=== PATIENT | female | born 1990 | race Caucasian/White ===

== ENCOUNTER 2023-09-12 10:07 | Inpatient (IN) | payer BC, SELFPAY ==
--- NOTE | 2023-09-12 10:09 | W.ED.PSYCHS ---
Documented by User: NUVIA Padilla 09/13/23 12:09 HPI - Psych General: Chief Complaint: Psychiatric Symptoms Stated Complaint: 96 hr hold Time Seen by Provider: 09/12/23 10:08 Source: patient and EMS Mode of arrival: EMS Limitations: no limitations History of Present Illness: Patient is a 33-year-old female presents to ED today via EMS after her mother called an ambulance for evaluation of hallucinations and concerning behaviors. Patient's mother is her legal guardian and power of ip technology transactions attorney. Mother states she has been hallucinating at home. She states she has been up all night for several days doing bizarre things. Mother has found her in the kitchen holding a knife asking where the dog is so she could stab it. Patient was recently admitted to [facility] in [place] for a month-mother states symptoms initially started while she was in the hospital. She has a known brain tumor/oligodendroglioma. She was told her behaviors were not secondary to tumor and has diagnosed her with attention seeking behaviors and multiple personality disorder. Had multiple other medical speciality consults while in patient. Patient tells me she is fine and wants to go home. Affidavit from the mother states that she is having confusion, delirium, and hallucinations. She has been physically aggressive to her siblings. She has gotten naked and jumped on her siblings bed in the middle of the night, scaring them. She has tried to elope during the night. She has been awaking her siblings in the middle of the night telling them its time for school. She has tried to jump out of the car and reportedly is not concerned with oncoming traffic. Father states she picks up the vacuum and has imaginary conversations with that as if it were a telephone. She reportedly talks to imaginary characters. She puts aluminum foil in the microwave and turns it on. Onset (ago): day(s) History of same: Yes Relieving factors: none Exacerbating factors: none Associated symptoms: Reports auditory hallucinations (per guardian) and visual hallucinations (per guardian); Deny depression, homicidal ideation or suicidal ideation Treatments prior to arrival: placed on mental health hold (parents filing affidavits at [facility] currently ) Review of Systems Const: Denies: fever(s) or chills Card: Denies: chest pain, palpitations, lightheadedness or syncope Resp: Denies: dyspnea GI: Denies: abdominal pain, nausea, vomiting or diarrhea Skin/Breast: Denies: rash Neuro: Denies: headache(s) Psych: Reports: visual hallucinations (per guardian) and auditory hallucinations (per guardian); Denies: anxiety, depression, suicidal ideation or homicidal ideation Physical Exam Const: COMMON NORMALS: no acute distress, patient oriented x3, alert and well nourished GENERAL APPEARANCE: cooperative Resp: COMMON NORMALS: normal respiratory effort and clear to auscultation bilaterally AUSCULTATION: clear to auscultation bilaterally Cardio: COMMON NORMALS: regular rate and regular rhythm RATE: regular rate RHYTHM: regular rhythm Neuro: COMMON NORMALS: patient oriented x3 SENSORIUM/ORIENTATION: Yes alert Psych: COMMON NORMALS: mental status grossly normal, cooperative, normal affect, speech normal and activity/motor behavior normal APPEARANCE: Yes grossly normal ATTITUDE: Yes calm ACTIVITY/MOTOR BEHAVIOR: Yes appropriate eye contact and No psychomotor agitation SPEECH: Yes normal speech MOOD & AFFECT: Yes euthymic mood ATTENTION/CONCENTRATION: Yes attention grossly intact and Yes concentration grossly intact MEMORY/COGNITION: Yes memory grossly intact and Yes cognition grossly intact INSIGHT: Limited insight present (Psych) JUDGEMENT: Limited judgement present (Psych) Course ED course: According to patient's mother, most of patient's psychotic like symptoms began when she was hospitalized at [facility]. She was reportedly there for a month. We requested records from [facility] which took a few hours to obtain. Unfortunately the records they sent did not contain any hospitalist progress notes or discharge summaries or any type of consult by psychiatry. I spoken to Dr. Velázquez who does not feel comfortable excepting patient without these notes. Patient has been in no acute distress since she arrived here although is quite drowsy. She is on large amounts of opiate pain medications as well as several other sedating medications including benzodiazepines and antipsychotics. Her blood pressure has been soft and unchanged after a liter of fluids. Records from [facility] does show similar blood pressures while there. We re-contacted [facility] and they are attempting to fax additional records. Consultations: Consultation #1: Dr. Velázquez will accept patient to [facility] Vital Signs: Vital signs: Vital Signs Temperature 97.5 F L 09/13/23 02:49 Pulse Rate 100 09/13/23 08:29 Respiratory Rate 16 09/13/23 08:29 Blood Pressure 93/59 09/13/23 08:29 Pulse Oximetry 95 09/13/23 08:29 Oxygen Delivery Me thod Room Air 09/12/23 20:49 MDM - Psych Medical Decision Making Patient was worked up in normal psychiatric fashion and once cleared medically he began to call places to see if we get her accepted to the appropriate psychiatric facility anticipate patient will be transferred to the appropriate psychiatric facility. I spoke to Dr. Velázquez at 1200 on 09/12 who states he has reviewed case thoroughly and spoken extensively to the mother and feels comfortable now taking her at [facility]. Lab Data 09/12/23 11:15 09/12/23 11:15 Radiology Impressions Chest X-Ray 09/12/23 11:28 IMPRESSION: No acute findings. Laboratory Results WBC 10.99 10^3/uL (3.29-11.43) 09/12/23 11:15 RBC 3.30 10^6/uL (3.85-5.65) L 09/12/23 11:15 Hgb 10.70 g/dL (11.27-16.99) L 09/12/23 11:15 Hct 34.4 % (36-47) L 09/12/23 11:15 MCV 104.2 fl (85-98) H 09/12/23 11:15 MCH 32.4 pg (27-33) 09/12/23 11:15 MCHC 31.1 g/dL (30-55) 09/12/23 11:15 RDW 14.9 % (12.1-15.1) 09/12/23 11:15 Plt Count 103 10^3/cmm (157-399) L 09/12/23 11:15 MPV 9.7 fL (7.4-10.4) 09/12/23 11:15 Neut % (Auto) 68.2 % 09/12/23 11:15 Lymph % (Auto) 8.8 % 09/12/23 11:15 [place] % (Auto) 20.5 % 09/12/23 11:15 Eos % (Auto) 0.6 % 09/12/23 11:15 Baso % (Auto) 0.3 % 09/12/23 11:15 Neut # (Auto) 7.49 10^3/uL (1.8-7.7) 09/12/23 11:15 Lymph # (Auto) 1.0 10^3/uL (0.8-4.8) 09/12/23 11:15 [place] # (Auto) 2.3 10^3/uL (0.2-0.9) H 09/12/23 11:15 Eos # (Auto) 0.1 10^3/uL (0.0-0.8) 09/12/23 11:15 Baso # (Auto) 0.0 10^3/uL (0.0-0.1) 09/12/23 11:15 Nucleated RBC % (auto) 0 % 09/12/23 11:15 Nucleated RBCs # 0.0 /100WBC 09/12/23 11:15 Sodium 140 mmol/L (136-145) 09/12/23 11:15 Potassium 4.9 mmol/L (3.5-5.1) 09/12/23 11:15 Chloride 103 mmol/L (98-107) 09/12/23 11:15 Carbon Dioxide 29 mmol/L (22-29) 09/12/23 11:15 Anion Gap 12.9 (5-19) 09/12/23 11:15 BUN 9 mg/dL (6-20) 09/12/23 11:15 Creatinine 0.6 mg/dL (0.5-0.9) 09/12/23 11:15 GFR Calculation 115.9 mL/min (90-130) 09/12/23 11:15 Glucose 89 mg/dL (65-115) 09/12/23 11:15 Calculated Osmolality 288 mOsm/kg (285-295) 09/12/23 11:15 Calcium 8.9 mg/dL (8.5-10.5) 09/12/23 11:15 Total Bilirubin 0.3 mg/dL (0.15-1.2) 09/12/23 11:15 AST 13 U/L (0-32) 09/12/23 11:15 ALT 6 U/L (0-33) 09/12/23 11:15 Alkaline Phosphatase 101 U/L (35-105) 09/12/23 11:15 Total Protein 5.6 g/dL (6.6-8.7) L 09/12/23 11:15 Albumin 2.7 g/dL (3.5-5.2) L 09/12/23 11:15 Globulin 2.9 g/dL (1.3-4.6) 09/12/23 11:15 TSH 0.80 uIU/mL (0.27-4.20) 09/12/23 11:15 HCG, Qual Negative (Negative) 09/12/23 11:15 Urine Color Yellow (Yellow) 09/12/23 20:42 Urine Appearance Clear (CLEAR) 09/12/23 20:42 Urine pH 6 (5-7) 09/12/23 20:42 Ur Specific [place] 1.020 (1.005-1.030) 09/12/23 20:42 Urine Protein Neg (Negative) 09/12/23 20:42 Urine Glucose (UA) 2+ (Normal) H 09/12/23 20:42 Urine Ketones 1+ (Negative) H 09/12/23 20:42 Urine Blood Neg (Negative) 09/12/23 20:42 Urine Nitrate Negative (Negative) 09/12/23 20:42 Urine Bilirubin Neg (Negative) 09/12/23 20:42 Urine Urobilinogen Neg mg/dL (Negative) 09/12/23 20:42 Ur Leukocyte Esterase Negative (Negative) 09/12/23 20:42 Salicylates < 0.3 mg/dL (3-10) L 09/12/23 11:15 Urine Opiates Screen Positive ng/mL (Negative) H 09/12/23 11:12 Acetaminophen 9.9 ug/mL (10-30) L 09/12/23 11:15 Ur Barbiturates Screen Negative ng/mL (Negative) 09/12/23 11:12 Ur Phencyclidine Scrn Negative ng/mL (Negative) 09/12/23 11:12 Ur Amphetamines Screen Negative ng/mL (Negative) 09/12/23 11:12 U Benzodiazepines Scrn Positive ng/mL (Negative) H 09/12/23 11:12 Urine Cocaine Screen Negative ng/mL (Negative) 09/12/23 11:12 U Marijuana (THC) Screen Negative ng/mL (Negative) 09/12/23 11:12 Ethyl Alcohol < 10 mg/dL (0-10) 09/12/23 11:15 Influenza Type A Ag Negative (Negative) 09/13/23 00:15 Influenza Type B Ag Negative (Negative) 09/13/23 00:15 RSV Antigen Negative (Negative) 09/13/23 00:15 SARS-CoV-2 Ag (Rapid) Negative (Negative) 09/13/23 00:15 No radiology studies performed this visit Discharge Plan Discharge Patient Disposition: Admitted As Inpatient Clinical Impression: Acute psychosis Condition: Stable Prescriptions: No Action metoprolol tartrate 100 mg tablet 100 mg PO BID ondansetron HCl 4 mg tablet 4 mg PO BID PRN (Reason: Nausea And Vomiting) olanzapine 10 mg tablet 10 mg PO BEDTIME divalproex 500 mg tablet,delayed release (DR/EC) 500 mg PO BID olanzapine 7.5 mg tablet 7.5 mg PO QAM oxycodone 15 mg tablet 15 mg PO Q4H PRN (Reason: Pain) potassium chloride 20 mEq tablet,ER particles/crystals 40 meq PO DAILY pantoprazole 40 mg tablet,delayed release (DR/EC) 40 mg PO DAILY FeroSul 325 mg (65 mg iron) tablet 325 mg PO DAILY promethazine 25 mg tablet 25 mg PO Q6H PRN (Reason: Nausea And Vomiting) morphine 15 mg tablet extended release 15 mg PO BID Rx Instructions: MAX OF 7 DAYS furosemide 20 mg tablet 20 mg PO DAILY lorazepam 1 mg tablet 1 mg PO Q6H PRN (Reason: Anxiety) olanzapine 5 mg tablet,disintegrating 5 mg PO Q8H PRN (Reason: Agitation) Jardiance 10 mg tablet 10 mg PO QAM Narcan 4 mg/actuation spray,non-aerosol See Rx Instructions .ROUTE .COMPLEX Rx Instructions: intranasally ;CALL 911 ADMINISTER A SINGLE SPRAY OF NARCAN IN ONE NOSTRIL REPEAT EVERY 2 TO 3 MINUTES NEEDED IF NO OR MINIMAL RESPONSE Valtoco 5 mg/spray (0.1 mL) spray,non-aerosol See Rx Instructions .ROUTE .COMPLEX Rx Instructions: 5 mg intranasally ;ADMINISTER ONE SPARY IN LEFT NOSTRIL ONE TIME NEEDED Referrals: Cristal Gaming FNP [Primary Care Provider] - Sign Out Sign Out Data: Patient Sign Out occurred on 09/12/23 at 17:11. Patient's care was discussed, and care was transferred from NUVIA Padilla to NUVIA Correa. Coding Level of Care Code ED Demolition Crane Operator for Chg Fwd Documented by User: Antione Monaco DO 09/13/23 02:39 HPI - Psych General: Chief Complaint: Psychiatric Symptoms Stated Complaint: 96 hr hold Time Seen by Provider: 09/12/23 10:08 Course Vital Signs: Vital signs: Vital Signs Temperature 97.5 F L 09/13/23 02:49 Pulse Rate 100 09/13/23 08:29 Respiratory Rate 16 09/13/23 08:29 Blood Pressure 93/59 09/13/23 08:29 Pulse Oximetry 95 09/13/23 08:29 Oxygen Delivery Me thod Room Air 09/12/23 20:49 MDM - Psych Medical Decision Making Patient was worked up in normal psychiatric fashion and once cleared medically he began to call places to see if we get her accepted to the appropriate psychiatric facility anticipate patient will be transferred to the appropriate psychiatric facility. Lab Data 09/12/23 11:15 09/12/23 11:15 Radiology Impressions Chest X-Ray 09/12/23 11:28 IMPRESSION: No acute findings. Laboratory Results WBC 10.99 10^3/uL (3.29-11.43) 09/12/23 11:15 RBC 3.30 10^6/uL (3.85-5.65) L 09/12/23 11:15 Hgb 10.70 g/dL (11.27-16.99) L 09/12/23 11:15 Hct 34.4 % (36-47) L 09/12/23 11:15 MCV 104.2 fl (85-98) H 09/12/23 11:15 MCH 32.4 pg (27-33) 09/12/23 11:15 MCHC 31.1 g/dL (30-55) 09/12/23 11:15 RDW 14.9 % (12.1-15.1) 09/12/23 11:15 Plt Count 103 10^3/cmm (157-399) L 09/12/23 11:15 MPV 9.7 fL (7.4-10.4) 09/12/23 11:15 Neut % (Auto) 68.2 % 09/12/23 11:15 Lymph % (Auto) 8.8 % 09/12/23 11:15 [place] % (Auto) 20.5 % 09/12/23 11:15 Eos % (Auto) 0.6 % 09/12/23 11:15 Baso % (Auto) 0.3 % 09/12/23 11:15 Neut # (Auto) 7.49 10^3/uL (1.8-7.7) 09/12/23 11:15 Lymph # (Auto) 1.0 10^3/uL (0.8-4.8) 09/12/23 11:15 [place] # (Auto) 2.3 10^3/uL (0.2-0.9) H 09/12/23 11:15 Eos # (Auto) 0.1 10^3/uL (0.0-0.8) 09/12/23 11:15 Baso # (Auto) 0.0 10^3/uL (0.0-0.1) 09/12/23 11:15 Nucleated RBC % (auto) 0 % 09/12/23 11:15 Nucleated RBCs # 0.0 /100WBC 09/12/23 11:15 Sodium 140 mmol/L (136-145) 09/12/23 11:15 Potassium 4.9 mmol/L (3.5-5.1) 09/12/23 11:15 Chloride 103 mmol/L (98-107) 09/12/23 11:15 Carbon Dioxide 29 mmol/L (22-29) 09/12/23 11:15 Anion Gap 12.9 (5-19) 09/12/23 11:15 BUN 9 mg/dL (6-20) 09/12/23 11:15 Creatinine 0.6 mg/dL (0.5-0.9) 09/12/23 11:15 GFR Calculation 115.9 mL/min (90-130) 09/12/23 11:15 Glucose 89 mg/dL (65-115) 09/12/23 11:15 Calculated Osmolality 288 mOsm/kg (285-295) 09/12/23 11:15 Calcium 8.9 mg/dL (8.5-10.5) 09/12/23 11:15 Total Bilirubin 0.3 mg/dL (0.15-1.2) 09/12/23 11:15 AST 13 U/L (0-32) 09/12/23 11:15 ALT 6 U/L (0-33) 09/12/23 11:15 Alkaline Phosphatase 101 U/L (35-105) 09/12/23 11:15 Total Protein 5.6 g/dL (6.6-8.7) L 09/12/23 11:15 Albumin 2.7 g/dL (3.5-5.2) L 09/12/23 11:15 Globulin 2.9 g/dL (1.3-4.6) 09/12/23 11:15 TSH 0.80 uIU/mL (0.27-4.20) 09/12/23 11:15 HCG, Qual Negative (Negative) 09/12/23 11:15 Urine Color Yellow (Yellow) 09/12/23 20:42 Urine Appearance Clear (CLEAR) 09/12/23 20:42 Urine pH 6 (5-7) 09/12/23 20:42 Ur Specific [place] 1.020 (1.005-1.030) 09/12/23 20:42 Urine Protein Neg (Negative) 09/12/23 20:42 Urine Glucose (UA) 2+ (Normal) H 09/12/23 20:42 Urine Ketones 1+ (Negative) H 09/12/23 20:42 Urine Blood Neg (Negative) 09/12/23 20:42 Urine Nitrate Negative (Negative) 09/12/23 20:42 Urine Bilirubin Neg (Negative) 09/12/23 20:42 Urine Urobilinogen Neg mg/dL (Negative) 09/12/23 20:42 Ur Leukocyte Esterase Negative (Negative) 09/12/23 20:42 Salicylates < 0.3 mg/dL (3-10) L 09/12/23 11:15 Urine Opiates Screen Positive ng/mL (Negative) H 09/12/23 11:12 Acetaminophen 9.9 ug/mL (10-30) L 09/12/23 11:15 Ur Barbiturates Screen Negative ng/mL (Negative) 09/12/23 11:12 Ur Phencyclidine Scrn Negative ng/mL (Negative) 09/12/23 11:12 Ur Amphetamines Screen Negative ng/mL (Negative) 09/12/23 11:12 U Benzodiazepines Scrn Positive ng/mL (Negative) H 09/12/23 11:12 Urine Cocaine Screen Negative ng/mL (Negative) 09/12/23 11:12 U Marijuana (THC) Screen Negative ng/mL (Negative) 09/12/23 11:12 Ethyl Alcohol < 10 mg/dL (0-10) 09/12/23 11:15 Influenza Type A Ag Negative (Negative) 09/13/23 00:15 Influenza Type B Ag Negative (Negative) 09/13/23 00:15 RSV Antigen Negative (Negative) 09/13/23 00:15 SARS-CoV-2 Ag (Rapid) Negative (Negative) 09/13/23 00:15 Discharge Plan Discharge Patient Disposition: Admitted As Inpatient Clinical Impression: Acute psychosis Condition: Stable Prescriptions: No Action metoprolol tartrate 100 mg tablet 100 mg PO BID ondansetron HCl 4 mg tablet 4 mg PO BID PRN (Reason: Nausea And Vomiting) olanzapine 10 mg tablet 10 mg PO BEDTIME divalproex 500 mg tablet,delayed release (DR/EC) 500 mg PO BID olanzapine 7.5 mg tablet 7.5 mg PO QAM oxycodone 15 mg tablet 15 mg PO Q4H PRN (Reason: Pain) potassium chloride 20 mEq tablet,ER particles/crystals 40 meq PO DAILY pantoprazole 40 mg tablet,delayed release (DR/EC) 40 mg PO DAILY FeroSul 325 mg (65 mg iron) tablet 325 mg PO DAILY promethazine 25 mg tablet 25 mg PO Q6H PRN (Reason: Nausea And Vomiting) morphine 15 mg tablet extended release 15 mg PO BID Rx Instructions: MAX OF 7 DAYS furosemide 20 mg tablet 20 mg PO DAILY lorazepam 1 mg tablet 1 mg PO Q6H PRN (Reason: Anxiety) olanzapine 5 mg tablet,disintegrating 5 mg PO Q8H PRN (Reason: Agitation) Jardiance 10 mg tablet 10 mg PO QAM Narcan 4 mg/actuation spray,non-aerosol See Rx Instructions .ROUTE .COMPLEX Rx Instructions: intranasally ;CALL 911 ADMINISTER A SINGLE SPRAY OF NARCAN IN ONE NOSTRIL REPEAT EVERY 2 TO 3 MINUTES NEEDED IF NO OR MINIMAL RESPONSE Valtoco 5 mg/spray (0.1 mL) spray,non-aerosol See Rx Instructions .ROUTE .COMPLEX Rx Instructions: 5 mg intranasally ;ADMINISTER ONE SPARY IN LEFT NOSTRIL ONE TIME NEEDED Referrals: Cristal Gaming FNP [Primary Care Provider] - Sign Out Sign Out Data: Patient Sign Out occurred on 09/12/23 at 17:11. Patient's care was discussed, and care was transferred from NUVIA Padilla to NUVIA Correa. Coding Level of Care Code ED Demolition Crane Operator for Arvind Lindo
[2023-09-12 11:20] VITALS: BP 93/57; PULSE 90; O2SAT 91
[2023-09-12 11:23] LABS: Basophils % 0.3 %; Eosinophils # 0.1 10^3/uL (0.0-0.8); Eosinophils % 0.6 %; Hematocrit 34.4 % (36-47); Lymphocytes % 8.8 %; Mean Corpuscular HGB Conc 31.1 g/dL (30-55); Mean Corpuscular Hemoglobin 32.4 pg (27-33); Mean Corpuscular Volume 104.2 fl (85-98); Mean Platelet Volume 9.7 fL (7.4-10.4); Monocytes # 2.3 10^3/uL (0.2-0.9); Monocytes % 20.5 %; Neutrophils # 7.49 10^3/uL (1.8-7.7); Neutrophils % 68.2 %; Nucleated Red Blood Cells % 0 %; Platelet Count 103 10^3/cmm (157-399); Red Cell Distribution Width 14.9 % (12.1-15.1); White Blood Count 10.99 10^3/uL (3.29-11.43)
--- NOTE | 2023-09-12 11:28 | XRR_ITS ---
PROCEDURE INFORMATION: Exam: XR Chest Exam date and time: 09/12/2023 12:09 PM Age: 33 years old Clinical indication: Other: Low 02; Patient HX: Low o2. PT states she is having trouble breathing. AMS. TECHNIQUE: Imaging protocol: Radiologic exam of the chest. Views: 1 view. COMPARISON: No relevant prior studies available. FINDINGS: Tubes, catheters and devices: Infusion port in place with its tip at the atriocaval junction. Lungs: Unremarkable. No consolidation. Pleural spaces: Unremarkable. No pleural effusion. No pneumothorax. Heart/Mediastinum: Unremarkable. No cardiomegaly. Bones/joints: Unremarkable. XR/XR chest 1V portable [id number] IMPRESSION: No acute findings.
--- NOTE | 2023-09-12 11:29 | PC.PHAR ---
PT UNABLE TO TO VERIFY MEDICATIONS- UNABLE TO REACH ANY OF THE PTS CONTACTS- MEDICATIONS VERIFIED USING EXTERNAL MED LIST LAST FILLED
[2023-09-12 11:44] LABS: Amphetamines Screen Urine Negative (Negative); Barbiturates Screen Urine Negative (Negative); Benzodiazepines Screen Urine Positive (Negative); Cocaine Screen Urine Negative (Negative); Opiate Screen Urine Positive (Negative); PCP Screen Urine Negative (Negative); THC Screen Urine Negative (Negative)
[2023-09-12 11:50] LABS: Acetaminophen 9.9 ug/mL (10-30); Alanine Aminotransferase 6 U/L (0-33); Albumin Level 2.7 g/dL (3.5-5.2); Alkaline Phosphatase 101 U/L (35-105); Anion Gap 12.9 (5-19); Aspartate Amino Transferase 13 U/L (0-32); Blood Urea Nitrogen 9 mg/dL (6-20); Calcium 8.9 mg/dL (8.5-10.5); Carbon Dioxide 29 mmol/L (22-29); Chloride 103 mmol/L (98-107); Globulin 2.9 g/dL (1.3-4.6); Glomerular Filtration Rate 115.9 mL/min (90-130); Glucose 89 mg/dL (65-115); Osmolality Calculated 288 mOsm/kg (285-295); Potassium 4.9 mmol/L (3.5-5.1); Sodium 140 mmol/L (136-145); Total Bilirubin 0.3 mg/dL (0.15-1.2); Total Protein 5.6 g/dL (6.6-8.7)
[2023-09-12 11:51] LABS: Alcohol Level < 10 mg/dL (0-10); Salicylate < 0.3 mg/dL (3-10)
[2023-09-12 11:54] LABS: HCG, Serum Qual Negative (Negative)
[2023-09-12] MEDS: sodium chloride 0.9% 1,000 ML 999 ML IV (12:00)
[2023-09-12 13:57] VITALS: BP 97/64; PULSE 91; TEMP 36.5; O2SAT 91
--- NOTE | 2023-09-12 15:08 | PC.NURSE ---
96 hr rights reviewed with [facility] Dina @[id number]. All education reviewed. No verbalized concerns or questions for HS at this time. Patient copy left @bedside with patient. No further needs when asked.
[2023-09-12 17:00] VITALS: BP 91/50; PULSE 87; O2SAT 92
[2023-09-12 19:05] VITALS: BP 99/65; PULSE 93; RESP 16; O2SAT 94
[2023-09-12 20:48] LABS: Add Urine Microscopic? NO; Charge for UA Resulting for Rev
[2023-09-12 20:49] VITALS: BP 92/60; PULSE 92; RESP 18; O2SAT 94
[2023-09-12 20:56] LABS: Bilirubin Urine Neg (Negative); Blood Urine Neg (Negative); Glucose Urine UA 2+ (Normal); Ketones Urine 1+ (Negative); Leukocyte Esterase Urine Negative (Negative); Nitrate Urine Negative (Negative); Protein Urine Neg (Negative); Urine Appearance Clear (CLEAR); Urine Color Yellow (Yellow); Urobilinogen Urine Neg (Negative); pH Urine 6 (5-7)
--- NOTE | 2023-09-12 23:50 | ECG_ITS ---
[facility] Test Date: 2023-09-13 Pat Name: Piedad Ramirez Department: Room: Gender: Female Car Starter: : 1990 Requested By: Moncho Castelan Order Number: [id number] Sydnie MD: James Simpson M.D. Measurements Intervals [place] Rate: 103 P: 55 VA: 137 QRS: 32 QRSD: 97 T: 26 QT: 292 QTc: 384 Interpretive Statements SINUS TACHYCARDIA NONSPECIFIC ST & T-WAVE ABNORMALITY No previous ECG available for comparison Electronically Signed On 09-13-2023 11:46:10 CDT by James Simpson M.D. [id number]
[2023-09-13 00:12] VITALS: BP 107/65; PULSE 103; RESP 18; O2SAT 94
--- NOTE | 2023-09-13 00:17 | PC.NURSE ---
EKG performed with patient permission with female PSA present.
[2023-09-13 01:04] LABS: Influenza A by IFA Negative (Negative); Influenza B by IFA Negative (Negative); SARS Covid-2 Antigen Negative (Negative)
[2023-09-13 01:05] LABS: RSV Transfer Patient (ED) Negative (Negative)
[2023-09-13] MEDS: acetaminophen 500 mg Tablet 1000 MG PO (02:45)
[2023-09-13 02:49] VITALS: BP 99/62; PULSE 98; RESP 16; TEMP 36.4; O2SAT 91
--- NOTE | 2023-09-13 02:59 | PC.NURSE ---
pt requesting food at this time. pt given sandwich, crackers, pudding as requested.
--- NOTE | 2023-09-13 05:02 | PC.NURSE ---
called [facility] and d/t the distance to the facility they will have the doctor review when he arrives in the am
[2023-09-13 08:29] VITALS: BP 93/59; PULSE 100; RESP 16; O2SAT 95
[2023-09-13] MEDS: divalproex DR 500 mg Tablet PO (08:31)
[2023-09-13] MEDS: ferrous sulfate EC 325 mg Tablet PO (08:31)
[2023-09-13] MEDS: pantoprazole DR 40 mg Tablet PO (08:32)
[2023-09-13] MEDS: potassium chloride ER 20 mEq Tablet 40 MEQ PO (08:32)
[2023-09-13] MEDS: OLANZapine 5 mg TABLET 7.5 MG PO (08:33)
[2023-09-13 14:17] VITALS: BP 103/67; PULSE 89; RESP 20; TEMP 36.6; O2SAT 95
[2023-09-13 20:02] VITALS: BP 95/60; PULSE 94; RESP 15; TEMP 36.8; O2SAT 96
--- NOTE | 2023-09-14 05:43 | P.NPUHP_ITS ---
Providers/Chief Complaint 2 Admitting Physician: Willian Velázquez MD Primary Care Provider: SYLVIA Modi Chief Complaint: 96 hr hold HPI NPU History of Present Illness Piedad Ramirez is a 33 year old female who presented to the emergency department with the following report: Chief Complaint: Psychiatric Symptoms Stated Complaint: 96 hr hold Time Seen by Provider: 09/12/23 10:08 Source: patient and EMS Mode of arrival: EMS Limitations: no limitations History of Present Illness: Patient is a 33-year-old female presents to ED today via EMS after her mother called an ambulance for evaluation of hallucinations and concerning behaviors. Patient's mother is her legal guardian and power of trust and estates attorney. Mother states she has been hallucinating at home. She states she has been up all night for several days doing bizarre things. Mother has found her in the kitchen holding a knife asking where the dog is so she could stab it. Patient was recently admitted to [facility] in [place] for a month-mother states symptoms initially started while she was in the hospital. She has a known brain tumor/oligodendroglioma. She was told her behaviors were not secondary to tumor and has diagnosed her with attention seeking behaviors and multiple personality disorder. Had multiple other medical speciality consults while in patient. Patient tells me she is fine and wants to go home. Affidavit from the mother states that she is having confusion, delirium, and hallucinations. She has been physically aggressive to her siblings. She has gotten naked and jumped on her siblings bed in the middle of the night, scaring them. She has tried to elope during the night. She has been awaking her siblings in the middle of the night telling them its time for school. She has tried to jump out of the car and reportedly is not concerned with oncoming traffic. Father states she picks up the vacuum and has imaginary conversations with that as if it were a telephone. She reportedly talks to imaginary characters. She puts aluminum foil in the microwave and turns it on. Onset (ago): day(s) History of same: Yes Relieving factors: none Exacerbating factors: none Associated symptoms: Reports auditory hallucinations (per guardian) and visual hallucinations (per guardian); Deny depression, homicidal ideation or suicidal ideation Treatments prior to arrival: placed on mental health hold (parents filing affidavits at [facility] currently ). She was admitted to the neuropsychiatric unit for definitive treatment of those issues. She presents today as a limited historian initially seeming to be too tired for the interview and unable to get herself alert. However when this magnetic tape typewriter operator stood up and suggested that we could just speak another time she was able to become interactive. She spent most of the time reporting that her parents were the challenge and that they blame everything on me. She focused on them not liking her last fianc? and the problems that that caused but seem to have progressed past the fact that if they were not being helpful she and her fianc? would have had no place to stay and then when they did have their own place to stay there were concerns about alcohol use and whether or not they were providing a safe place for her 4 children. She could not really explain what is been going on recently with these bizarre behaviors. We discussed that she has had multiple consultations that have ruled out the likelihood that this is a sequela of her glioma. She confirmed as her mother discussed that she is never really been independently functional without one of her baby's father's assisting her or her parents assisting her with limited employment and no long periods of interpersonal success. When the conversation turned towards the psychosocial challenges including the recent break-up with her most recent fianc? having a possible impact on her behavior pattern and that she may have recently acknowledges that reality to her mother she reported having abdominal issues and having to go to the restroom to prevent having an accident concluding the conversation as she stayed in the bathroom for some time. We had discussed prior to that a plan to review her medications and try to clean up any polypharmacy and start focusing on a plan for DBT or CBT as the follow-up plan. She most recently had been staying with her mother with her 4 children until her escalating behaviors led to such a disruption in their sleep and schooling that she was brought to the emergency department. Meds NPU Home Medications Medication Instructions Recorded Confirmed Last Taken Type diazepam 5 mg/spray (0.1 mL) nasal See Rx Instructions .Route .COMPLEX 09/12/23 09/12/23 Unknown History spray (Valtoco) divalproex 500 mg tablet,delayed 500 mg PO BID 09/12/23 09/12/23 Unknown History release empagliflozin 10 mg tablet 10 mg PO QAM 09/12/23 09/12/23 Unknown History (Jardiance) ferrous sulfate 325 mg (65 mg 325 mg PO DAILY 09/12/23 09/12/23 Unknown History iron) tablet (FeroSul) furosemide 20 mg tablet 20 mg PO DAILY 09/12/23 09/12/23 Unknown History lorazepam 1 mg tablet 1 mg PO Q6H PRN Anxiety 09/12/23 09/12/23 Unknown History metoprolol tartrate 100 mg tablet 100 mg PO BID 09/12/23 09/12/23 Unknown History morphine 15 mg tablet,extended 15 mg PO BID 09/12/23 09/12/23 Unknown History release naloxone 4 mg/actuation nasal See Rx Instructions .Route .COMPLEX 09/12/23 09/12/23 Unknown History spray (Narcan) olanzapine 10 mg tablet 10 mg PO BEDTIME 09/12/23 09/12/23 Unknown History olanzapine 5 mg disintegrating 5 mg PO Q8H PRN Agitation 09/12/23 09/12/23 Unknown History tablet olanzapine 7.5 mg tablet 7.5 mg PO QAM 09/12/23 09/12/23 Unknown History ondansetron HCl 4 mg tablet 4 mg PO BID PRN Nausea And Vomiting 09/12/23 09/12/23 Unknown History oxycodone 15 mg tablet 15 mg PO Q4H PRN Pain 09/12/23 09/12/23 Unknown History pantoprazole 40 mg tablet,delayed 40 mg PO DAILY 09/12/23 09/12/23 Unknown History release potassium chloride 20 mEq 40 meq PO DAILY 09/12/23 09/12/23 Unknown History tablet,extended release(part/cryst) promethazine 25 mg tablet 25 mg PO Q6H PRN Nausea And 09/12/23 09/12/23 Unknown History Vomiting Allergies Allergy/AdvReac Type Severity Reaction Status Date / Time latex Allergy Intermediate ADR-Itching Verified 07/08/21 10:27 Sulfa (Sulfonamide Allergy Intermediate ADR-Itching Verified 07/08/21 10:27 Antibiotics) sulfamethoxazole Allergy Intermediate ADR-Itching Verified 07/08/21 10:27 [From Bactrim] trimethoprim [From Bactrim] Allergy Intermediate ADR-Itching Verified 07/08/21 10:27 Mental Status Exam 2 MSE Comments: This is an overweight versus obese white female in hospital scrubs with poor grooming and eye contact. No abnormal movements except for significant psychomotor retardation. Resistant to exam in mild to moderate distress. Speech was decreased rate and volume and at times unintelligible. Mood described as depressed, affect was subdued . Thought process appeared mostly organized. Thought content: patient denied suicidal or homicidal ideation, no delusions reported or noted.? Attention and concentration were limited and memory was unreliable but likely purposefully so, but none were formally tested. She was alert and oriented times person and place. Insight, judgment and impulse control were impaired. Vitals/I&O/Wt Last Vital Signs Temp 98.3 F 09/13/23 20:02 Pulse 94 09/13/23 20:02 Resp 15 09/13/23 20:02 BP 95/60 09/13/23 20:02 Pulse Ox 96 09/13/23 20:02 O2 Del Method Room Air 09/13/23 14:19 Weight last 48 hrs Weight 77.111 kg Data NPU 09/12/23 11:15 09/14/23 11:02 A&P Assessment and plan (1) Acute psychosis: (2) Parent-child relational problem: (3) Partner relational problem: (4) Anxiety disorder: (5) Cluster B personality disorder in adult: Plan This is a 44 year old white female with a long history of mental health and addiction issues with recent significant medical comorbidities and a dramatic change in behavioral pattern with significant concerns for cluster B pathology. 1.? Review medications and consider changes. 2.? Encourage individual, group and milieu therapy 3.? Continue q-15 minute check for safety 4.? Recommend sober living treatment at the highest level of care to which the patient is willing to commit. Attestations NPU 2 Medical Necessity Statement*: Inpatient hospitalization is medically necessary and the clinically appropriate intervention at this time. We will monitor medications and make changes as indicated. Patient will be in the hospital for over two midnights. Likely length of stay is 5-7 days. Coding Level of Care Code Acute Code for Chg Fwd Diagnoses Acute psychosis F23 Parent-child relational problem Z62.820 Partner relational problem Z63.0 Anxiety disorder F41.9 Cluster B personality disorder in adult F60.9
[2023-09-14 06:00] VITALS: BP 109/63; PULSE 84; RESP 15; TEMP 36.6; O2SAT 97
[2023-09-14] MEDS: acetaminophen 325 mg Tablet 650 MG PO (08:58)
[2023-09-14] MEDS: hyDROXYzine 25 mg Capsule 50 MG PO ×2 (08:58→21:05)
--- NOTE | 2023-09-14 10:01 | PM.CONSULT ---
Providers/Reason For Consult Consulting Physician/Specialty*: Jessica Bennett MD/ Hospitalist Reason for Consult*: medical comorbidities management Requesting Physician: Willian Velázquez MD Attending Physician: Willian Velázquez MD Primary Care Provider: SYLVIA Modi History of Present Illness History of Present Illness Piedad Ramirez is a 33 year old female with a past medical history of glioma status post biopsy one year ago and and PNV chemotherapy completed 2 months ago recently admitted at [facility] in [place] for acute psychosis. Per review of records she was admitted to [facility] in [place] between August 09 to September 06, 2023 after presenting there with aphasia which was new. There was also concern for possible seizure. Initially there was stroke activation but eventually after consult with neurology, both seizure and stroke were ruled out. While there she developed confusion and hallucination and exhibited psychotic paranoid behavior. She was lacking insight showed delusions and agitation. She was treated with input from neurology cardiology and psychiatry services there. She was then released under the care of her parents. Patient was brought here on September 11, 2022 with acute psychosis. She is currently on a 96-hour hold. She is admitted to the neuropsychiatry unit. Medicine service has been consulted for management of medical comorbidities. History is taken from patient and also her parents and reviewing medical records from [facility]. patient was diagnosed with heart failure her last admission. She had developed increasing lower extremity swelling which prompted a lower extremity Doppler which was negative for DVT and also had an echocardiogram. Echocardiogram showed an LVEF of 45%, global hypokinesis, grade 1 diastolic dysfunction. All valvular structures were grossly normal. She was noted to have sinus tachycardia during most of her admission course, telemetry was recommended, however patient refused to wear it. Compression wraps were also recommended due to suspected venous insufficiency, however patient refused this intervention at [facility]. Cause of cardiomyopathy was not evident, was perhaps thought to be related to tachycardia induced.She has no known history of coronary artery disease. She has never had a stress test or an angiogram. Patient's mother tells me that patient has had issues with tachycardia since she was a teenager and has had Holter monitoring several times as a young adult. Reportedly it was always told she has sinus tachycardia. As an indication on her echocardiogram I noticed atrial fibrillation mentioned, however she has no documented history of the same. She was recently started on metoprolol which was titrated to 100 mg p.o. twice daily and was also started on Jardiance. Patient is not a known diabetic. It appears Jardiance was being used purely for heart failure. She is also on Lasix 20 mg p.o. daily. Patient is able to confirm that she has chronic lower extremity swelling however she does not know that she has officially been diagnosed with heart failure. She was unable to tell me if any testing was done at [facility], most of this information is received by talking to parents and reviewing the medical records. Review of Systems General: Reports: 10 or more systems reviewed and unremarkable except in HPI and below Const: Denies: fever(s), chills or body aches Eyes: Denies: change in vision, blurry vision or photophobia ENMT: Reports: hoarseness; Denies: throat pain, enlarged tonsils, odynophagia or nasal congestion Card: Denies: chest pain, palpitations, irregular heart rhythm, edema, swelling of feet/ankles, lightheadedness, pre-syncope, dyspnea on exertion or orthopnea Resp: Denies: dyspnea, productive cough, non-productive cough, wheezing, stridor, pain on inspiration, change in phlegm color, hemoptysis or chest congestion GI: Denies: abdominal pain, nausea, vomiting, hematemesis, coffee ground emesis, dysphagia, heartburn, diarrhea, constipation, GI cramping, change in stool character, hematochezia or melena : Denies: flank pain, difficulty voiding, dysuria, urinary frequency, urinary urgency, urinary hesitancy or hematuria Musc: Denies: neck pain, back pain, extremity pain, joint swelling, joint warmth or deformity Neuro: Denies: headache(s), numbness in extremities, weakness in extremities, sensory changes, difficulty walking, frequent falls, dizziness, vertigo, behavioral changes, Slurred speech present or seizure-like activity Psych: Denies: anxiety, depression, suicidal ideation or homicidal ideation Endo: Denies: polyuria, polydipsia, tired all the time, cold intolerance or hot flashes Obed/Lymph: Denies: easy bruising or easy bleeding Medications/Allergies Home Medications Medication Instructions Recorded Confirmed Last Taken Type diazepam 5 mg/spray (0.1 mL) nasal See Rx Instructions .Route .COMPLEX 09/12/23 09/12/23 Unknown History spray (Valtoco) divalproex 500 mg tablet,delayed 500 mg PO BID 09/12/23 09/12/23 Unknown History release empagliflozin 10 mg tablet 10 mg PO QAM 09/12/23 09/12/23 Unknown History (Jardiance) ferrous sulfate 325 mg (65 mg 325 mg PO DAILY 09/12/23 09/12/23 Unknown History iron) tablet (FeroSul) furosemide 20 mg tablet 20 mg PO DAILY 09/12/23 09/12/23 Unknown History lorazepam 1 mg tablet 1 mg PO Q6H PRN Anxiety 09/12/23 09/12/23 Unknown History metoprolol tartrate 100 mg tablet 100 mg PO BID 09/12/23 09/12/23 Unknown History morphine 15 mg tablet,extended 15 mg PO BID 09/12/23 09/12/23 Unknown History release naloxone 4 mg/actuation nasal See Rx Instructions .Route .COMPLEX 09/12/23 09/12/23 Unknown History spray (Narcan) olanzapine 10 mg tablet 10 mg PO BEDTIME 09/12/23 09/12/23 Unknown History olanzapine 5 mg disintegrating 5 mg PO Q8H PRN Agitation 09/12/23 09/12/23 Unknown History tablet olanzapine 7.5 mg tablet 7.5 mg PO QAM 09/12/23 09/12/23 Unknown History ondansetron HCl 4 mg tablet 4 mg PO BID PRN Nausea And Vomiting 09/12/23 09/12/23 Unknown History oxycodone 15 mg tablet 15 mg PO Q4H PRN Pain 09/12/23 09/12/23 Unknown History pantoprazole 40 mg tablet,delayed 40 mg PO DAILY 09/12/23 09/12/23 Unknown History release potassium chloride 20 mEq 40 meq PO DAILY 09/12/23 09/12/23 Unknown History tablet,extended release(part/cryst) promethazine 25 mg tablet 25 mg PO Q6H PRN Nausea And 09/12/23 09/12/23 Unknown History Vomiting Allergies Allergy/AdvReac Type Severity Reaction Status Date / Time latex Allergy Intermediate ADR-Itching Verified 07/08/21 10:27 Sulfa (Sulfonamide Allergy Intermediate ADR-Itching Verified 07/08/21 10:27 Antibiotics) sulfamethoxazole Allergy Intermediate ADR-Itching Verified 07/08/21 10:27 [From Bactrim] trimethoprim [From Bactrim] Allergy Intermediate ADR-Itching Verified 07/08/21 10:27 Current Medications Generic Name Dose Route Start Last Admin Trade Name Freq PRN Reason Stop Dose Admin Acetaminophen 650 mg 09/13/23 14:17 09/14/23 08:58 Acetaminophen 325 Mg Tablet PO 650 mg Q4H PRN Administration MILD PAIN Hydroxyzine Pamoate 50 mg 09/13/23 14:17 09/14/23 08:58 Hydroxyzine 25 Mg Capsule PO 50 mg Q6H PRN Administration ANXIETY PFSH Acute Female Reproductive History: Date of last menstrual period: 07/14/23 Vitals/I&O/Wt Last Vital Signs Temp 98 F 09/14/23 06:00 Pulse 84 09/14/23 06:00 Resp 15 09/14/23 06:00 BP 109/63 09/14/23 06:00 Pulse Ox 97 09/14/23 06:00 O2 Del Method Room Air 09/13/23 14:19 Weight last 48 hrs Weight 77.111 kg Physical Exam Narrative: General: No acute distress, AO x3 HEENT: PERRLA, pupils bilaterally equal and reactive, pallors not present Chest: Normal vesicular breath sounds, no added sounds, equal good air entry bilaterally CVS: S1-S2 regular, no murmurs, no tachycardia, no gallops, no rubs Abdomen: Soft, nontender, no organomegaly, bowel sounds present Neuro: No focal deficits, no facial deformity, AO x3, power 5/5 in all limbs Extremities: LE B/L edema Data 09/12/23 11:15 09/14/23 11:02 Other data: A&P Assessment and plan (1) Acute psychosis: Admitted at NPU, management per psychaitry (2) Diastolic heart failure: It appears this is a fairly recent diagnosis. Ejection fraction of 45% with global hypokinesia Grade 1 diastolic heart failure. Echo results as noted above. Would not be repeating any testing here or as all performed recently as noted above. No past history of CAD, patient denies any current chest pain. It appears it was thought that patient may have tachycardia related cardiomyopathy. Check troponin, BNP, CMP, HbA1c, baseline EKG If EKG and troponin currently within normal limit, would defer ischemic workup for now. Patient would likely eventually need to be established with cardiology and get a stress test as outpatient. Continue metoprolol, reduced dose from 100 mg twice daily to 25 mg p.o. twice daily given soft blood pressures. Currently patient's heart rate is ranging between 73 to 104/min. Blood pressure ranging between 92-1 09 systolic. Continue Lasix at home doses of 20 mg p.o. daily. Will titrate if needed based on clinical response. Chest x-ray taken upon admission without any signs of pulmonary edema. (3) Heart failure with reduced ejection fraction: Consult Attestations Medical Necessity Statement: per admitting Coding Level of Care Code Acute Code for Chg Fwd Moderate MDM includes number and complexity of problems actively addressed during encounter, amount and/or complexity of data reviewed/ordered and described risk of complication, morbidity or mortality of management as documented Diagnoses Acute psychosis F23 Diastolic heart failure I50.30 Heart failure with reduced ejection fraction I50.20
--- NOTE | 2023-09-14 10:27 | PC.NURSE ---
PT WAS IN SHOWER AND CAME OUT COMPLETELY NAKED UP TO THE NURSES STATION STATING I'M ABOUT TO PASS OUT, THAT'S WHY I'M HERE. MPT IS TEARFUL BUT ABLE TO BE REDIRECTED TO ROOM. TOWELS GIVEN TO PT AND STAFF ASSISTED IN DRYING PT OFF AND PROVIDING PRIVACY. PT STATES SHE CAN NOT DRESS HERSELF. STAFF ASSISTED IN GETTING PT DRESSED, VITALS OBTAINED AND ARE FOLLOWS: 117/81, 111, 18, AND 95% RA. PT THEN LAID DOWN TO REST. RESPIRATORY CALLED TO COMPLETE EKG THAT WAS SCHEDULED ROUTINE AT 1000 AM. RESPIRATORY NOTIFIED TO COMPLETE SOON. AT 1031 RESPIRATORY HERE TO COMPLETE EKG ORDERED. SUPPORT WAS VOICED.
--- NOTE | 2023-09-14 10:34 | ECG_ITS ---
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 Measurements Intervals [place] Rate: 73 P: 53 OR: 142 QRS: 39 QRSD: 102 T: 24 QT: 352 QTc: 390 Interpretive Statements SINUS RHYTHM WITH SINUS ARRHYTHMIA Electronically Signed On 09-14-2023 10:35:43 CDT by James Simpson M.D. [email or web address]
[2023-09-14] MEDS: FUROsemide 20 mg Tablet PO (10:46)
[2023-09-14 11:30] VITALS: PULSE 73
[2023-09-14 11:32] LABS: Troponin T (5th) Once 12 ng/L (0-10)
[2023-09-14 11:46] LABS: Alanine Aminotransferase 6 U/L (0-33); Albumin Level 2.7 g/dL (3.5-5.2); Alkaline Phosphatase 106 U/L (35-105); Anion Gap 14.1 (5-19); Aspartate Amino Transferase 16 U/L (0-32); Blood Urea Nitrogen 4 mg/dL (6-20); Calcium 8.7 mg/dL (8.5-10.5); Carbon Dioxide 24 mmol/L (22-29); Chloride 104 mmol/L (98-107); Globulin 2.6 g/dL (1.3-4.6); Glucose 103 mg/dL (65-115); NT Pro B Type Natriuretic Pept 4140 pg/mL (0-125); Osmolality Calculated 283 mOsm/kg (285-295); Potassium 4.1 mmol/L (3.5-5.1); Sodium 138 mmol/L (136-145); Total Bilirubin 0.2 mg/dL (0.15-1.2); Total Protein 5.3 g/dL (6.6-8.7)
[2023-09-14 11:58] LABS: Estmated Average Glucose 82; Hemoglobin A1C 4.5 % (4.0-6.0)
[2023-09-14] MEDS: ondansetron 4 MG Tablet PO (12:35)
[2023-09-14] MEDS: ibuprofen 600 mg Tablet PO (13:38)
[2023-09-14] MEDS: OLANZapine 5 mg ODT PO (13:38)
[2023-09-14 13:45] VITALS: BP 102/67; PULSE 93; RESP 17; TEMP 36.5; O2SAT 98
[2023-09-14] MEDS: loperamide 2 mg Capsule PO (15:33)
--- NOTE | 2023-09-14 18:48 | PC.NURSE ---
PT HAS HAD SOMATIC COMPLAINTS THROUGH OUT THE SHIFT. PT REPORTS FEELING FAINT FREQUENTLY AND REPORTS 2 DIARRHEA STOOLS WHICH THIS RN GAVE IMMODIUM ORDERED. PT HAS HAD NO FURTHER COMPLAINTS OF DIARRHEA SINCE ADMINISTRATION. PT ALSO HAD C/O ANXIETY AND WAS GIVEN ZYDIS 5 MG ORDERED. MEDICATION DEEMED EFFECTIVE NO OTHER COMPLAINTS OF ANXIETY HAVE BEEN REPORTED. SUPPORT VOICED. PT CONTINUES TO REST WITH EYES CLOSED.
[2023-09-14] MEDS: metoprolol tartrate 25 mg Tablet PO (21:04)
[2023-09-14] MEDS: trazodone 50 mg Tablet PO (21:05)
[2023-09-14 21:26] VITALS: BP 122/71; PULSE 83; RESP 16; TEMP 36.4; O2SAT 100
[2023-09-15 06:00] VITALS: BP 112/77; PULSE 76; RESP 16; TEMP 36.5; O2SAT 99
[2023-09-15] MEDS: OLANZapine 5 mg ODT PO (08:19)
[2023-09-15] MEDS: metoprolol tartrate 25 mg Tablet PO (08:19)
[2023-09-15] MEDS: loperamide 2 mg Capsule PO (08:21)
[2023-09-15] MEDS: FUROsemide 20 mg Tablet PO (08:21)
[2023-09-15] MEDS: ondansetron 4 MG Tablet PO (08:22)
--- NOTE | 2023-09-15 08:47 | PC.NURSE ---
IN DAY ROOM EATING BREAKFAST. PT IS OBSERVED HAVING A FLAT AFFECT AND DEPRESSED MOOD. PT CONTINUES TO MAKE SOMATIC COMPLAINTS THAT ARE GENERALIZED STATING I JUST DON'T FEEL GOOD AND I'M GOING TO PASS OUT. PT BLOOD PRESSURE THIS AM WAS 112/77. PT WAS EDUCATED TO GET UP SLOWLY AND DRINK PO FLUIDS. PT DOES APPEAR TO HAVE SOME CONFUSION AT TIMES ASKING THIS RN IF SHE CAN GO DOWN STAIRS TO MAKE A PHONE CALL. PT WAS DIRECTED TO THE TELEPHONE 15 FEET FROM HER. PT ATTEMPTED TO MAKE A CALL BUT COULD NOT FIGURE OUT HOW TO DIAL 91 THEN THE NUMBER. STAFF DID HAVE TO ASSIST HER IN MAKING THE CALL. DENIES SI/HI AND AVH AT THIS TIME. RATES ANXIETY 3/10 AND DEPRESSION 4/10. ZYDIS 5 MG WAS GIVEN ORDERED FOR REPORTS OF INCREASED ANXIETY. PT COMPLAINS OF UPSET STOMACH AND NAUSEA ZOFRAN 4 MG WAS GIVEN ORDERED FOR NAUSEA. PT REPORTS SHE HAD MORE DIARRHEA LAST SHIFT RN GAVE IMMODIUM ORDERED FOR DIARRHEA. ALL QUESTIONS WERE ANSWERED AND SUPPORT WAS VOICED, RATES PAIN 8/10 IN BACK, THIS RN WILL GIVE TYLENOL WHEN PT STATES I'M READY FOR IT, I WANT TO EAT FIRST.
[2023-09-15] MEDS: ibuprofen 600 mg Tablet PO ×2 (08:55→18:19)
[2023-09-15 13:15] VITALS: BP 111/80; PULSE 102; RESP 20; TEMP 36.4; O2SAT 95
--- NOTE | 2023-09-15 13:30 | P.NPUPN_ITS ---
Subjective NPU 2 Subjective: Patient presented today reporting that she is doing fine. With a lengthy discussion about the fact that many of the behaviors that she has been dissipating that led to the 96-hour hold/introduction of her DPOA were volitional and she reports for attention. She is very tearful as we discussed the reasoning behind her choices and how those choices were taken toll on her children and her family. We discussed the opportunity delay before her to except that the good news was that it was her fault but that if it was something she was responsible for she had the opportunity to make the change. She denied any side effects to the medication. Mental Status Exam 2 MSE Comments: This is an overweight versus obese white female in hospital scrubs with improving grooming and eye contact. No abnormal movements except for mild and resolving psychomotor retardation. Cooperative with exam in mild distress. Speech was more normal rate and volume. Mood described as a little better, affect was congruent and less subdued . Thought process appeared mostly organized. Thought content: patient denied suicidal or homicidal ideation, no delusions reported or noted, she denied auditory or visual hallucinations.? Attention and concentration were limited and memory was more reliable, but none were formally tested. She was alert and oriented times 3. Insight, judgment and impulse control were improving. Vitals/I&O/Wt Last Vital Signs Temp 97.5 F L 09/15/23 13:15 Pulse 102 H 09/15/23 13:15 Resp 20 H 09/15/23 13:15 BP 111/80 09/15/23 13:15 Pulse Ox 95 09/15/23 13:15 O2 Del Method Room Air 09/13/23 14:19 Data NPU 09/12/23 11:15 09/14/23 11:02 A&P Assessment and plan (1) Acute psychosis: (2) Parent-child relational problem: (3) Partner relational problem: (4) Anxiety disorder: (5) Cluster B personality disorder in adult: Plan This is a 44 year old white female with a long history of mental health and addiction issues with recent significant medical comorbidities and a dramatic change in behavioral pattern with significant concerns for cluster B pathology. 1.? Review medications and consider changes. Discontinue Depakote, Valium and daytime Zyprexa. 2.? Encourage individual, group and milieu therapy 3.? Continue q-15 minute check for safety 4.? Recommend sober living treatment at the highest level of care to which the patient is willing to commit. Attestations NPU 2 Medical Necessity Statement*: Inpatient hospitalization is medically necessary and the clinically appropriate intervention at this time. We will monitor medications and make changes as indicated. Likely length of stay is 1-4 days. Coding Level of Care Code Acute Code for Chg Fwd Diagnoses Acute psychosis F23 Parent-child relational problem Z62.820 Partner relational problem Z63.0 Anxiety disorder F41.9 Cluster B personality disorder in adult F60.9
--- NOTE | 2023-09-15 14:45 | PC.NURSE ---
RN REVIEWED MEDICATIONS WITH DR. SPRING. NEW ORDERS RECEIVED TO START ZYDIS 10 MG PO AT BEDTIME, PROTONIX 40 MG PO DAILY,IRON 325MG/65MG PO DAILY AND OXYCODONE 15 MG PO Q 8 HOUR PRN PAIN. MEDICATIONS REVIEWED WITH PT AND EDUCATION PROVIDED. PT VERBALIZED UNDERSTANDING AT THIS TIME. SUPPORT WAS VOICED.
[2023-09-15 17:09] VITALS: RESP 16; O2SAT 98
[2023-09-15] MEDS: oxyCODONE 5 mg IR Tab/Cap 15 MG PO (17:09)
[2023-09-15 19:55] VITALS: BP 110/69; PULSE 100; RESP 18; O2SAT 93
[2023-09-15] MEDS: OLANZapine 10 mg TABLET PO (20:48)
[2023-09-15] MEDS: trazodone 50 mg Tablet PO (20:48)
[2023-09-15] MEDS: acetaminophen 325 mg Tablet 650 MG PO (22:34)
[2023-09-16] VITALS (7 sets, daily range): BP systolic 86–114; BP diastolic 55–78; PULSE 82–113; RESP 16–18; TEMP 36.6–36.8; O2SAT 97
[2023-09-16] MEDS: ferrous sulfate EC 325 mg Tablet PO (08:33)
[2023-09-16] MEDS: pantoprazole DR 40 mg Tablet PO (08:33)
[2023-09-16] MEDS: FUROsemide 20 mg Tablet PO (08:33)
[2023-09-16] MEDS: oxyCODONE 5 mg IR Tab/Cap 15 MG PO ×2 (08:36→20:16)
[2023-09-16] MEDS: nicotine 2 mg Gum BUCCAL ×2 (11:06→13:34)
[2023-09-16] MEDS: ondansetron 4 MG Tablet PO (11:47)
--- NOTE | 2023-09-16 12:16 | PC.NURSE ---
discharge possible discharge today
--- NOTE | 2023-09-16 14:51 | ECG_ITS ---
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 Measurements Intervals [place] Rate: 82 P: 17 IA: 113 QRS: 31 QRSD: 112 T: 6 QT: 346 QTc: 406 Interpretive Statements SINUS RHYTHM WITH SINUS ARRHYTHMIA WITH SHORT IA INTERVAL MODERATE INTRAVENTRICULAR CONDUCTION DELAY [110+ ms QRS DURATION] NONSPECIFIC T-WAVE ABNORMALITY Compared to ECG 09/14/2023 10:34:28 Short IA interval now present Intraventricular conduction delay now present T-wave abnormality now present Electronically Signed On 09-16-2023 17:09:51 CDT by Shefali Aponte M.D. [id number]
[2023-09-16] MEDS: hyDROXYzine 25 mg Capsule 50 MG PO (15:26)
--- NOTE | 2023-09-16 15:40 | P.NPUPN_ITS ---
Subjective NPU 2 Medications: Medication Review Details: Patient presents today reporting that she is feeling better and continuing to try her best to face her stressors had on. We discussed her interactions with her mother yesterday and while they represented positively on her plan for establishing a new pattern in the morning but felt short in the evening and strategies to address those kinds of setbacks. We had an opportunity to talk to her mother about same issues as well. We talked about cluster B pathology and looking for opportunities for cognitive behavioral therapy as well as DBT. We discussed continuing to feel positively about her advancements thus far in the hospital and a continued plan for discharge tomorrow. She denies any side effects to the medication Mental Status Exam 2 MSE Comments: This is an overweight versus obese white female in hospital scrubs with improving grooming and eye contact. No abnormal movements except for mild and resolving psychomotor retardation. Cooperative with exam in mild distress. Speech was more normal rate and volume. Mood described as a little better, affect was congruent and less subdued . Thought process appeared mostly organized. Thought content: patient denied suicidal or homicidal ideation, no delusions reported or noted, she denied auditory or visual hallucinations.? Attention and concentration were limited and memory was more reliable, but none were formally tested. She was alert and oriented times 3. Insight, judgment and impulse control were improving. Vitals/I&O/Wt Last Vital Signs Temp 97.8 F 09/16/23 13:34 Pulse 113 H 09/16/23 13:34 Resp 16 09/16/23 13:34 BP 111/78 09/16/23 15:27 Pulse Ox 97 09/16/23 13:34 O2 Del Method Room Air 09/16/23 13:34 Data NPU 09/12/23 11:15 09/14/23 11:02 A&P Assessment and plan (1) Acute psychosis: (2) Parent-child relational problem: (3) Partner relational problem: (4) Anxiety disorder: (5) Cluster B personality disorder in adult: Plan This is a 44 year old white female with a long history of mental health and addiction issues with recent significant medical comorbidities and a dramatic change in behavioral pattern with significant concerns for cluster B pathology. 1.? Review medications and consider changes. Discontinue Depakote, Valium and daytime Zyprexa. 2.? Encourage individual, group and milieu therapy 3.? Continue q-15 minute check for safety 4.? Recommend sober living treatment at the highest level of care to which the patient is willing to commit. Attestations NPU 2 Medical Necessity Statement*: Inpatient hospitalization is medically necessary and the clinically appropriate intervention at this time. We will monitor medications and make changes as indicated. Likely length of stay is 1-3 days. Coding Level of Care Code Acute Code for Chg Fwd Diagnoses Acute psychosis F23 Parent-child relational problem Z62.820 Partner relational problem Z63.0 Anxiety disorder F41.9 Cluster B personality disorder in adult F60.9
--- NOTE | 2023-09-16 16:00 | PM.PN ---
Subjective Subjective: No acute interim events. Patient had a drop in blood pressure to the 80s with metoprolol 100 mg dosing. She denies any nausea vomiting dizziness. Medications: Reviewed: Yes Vitals/I&O/Wt Last Vital Signs Temp 98.5 F 09/17/23 06:00 Pulse 120 H 09/17/23 06:00 Resp 16 09/17/23 09:53 BP 106/68 09/17/23 06:00 Pulse Ox 96 09/17/23 06:00 O2 Del Method Room Air 09/17/23 06:00 Physical Exam Narrative: General: No acute distress, AO x3 HEENT: PERRLA, pupils bilaterally equal and reactive, pallors not present Chest: Normal vesicular breath sounds, no added sounds, equal good air entry bilaterally CVS: S1-S2 regular, no murmurs, no tachycardia, no gallops, no rubs Abdomen: Soft, nontender, no organomegaly, bowel sounds present Neuro: No focal deficits, no facial deformity, AO x3, power 5/5 in all limbs Extremities: LE B/L edema Data 09/12/23 11:15 09/14/23 11:02 A&P Assessment and plan (1) Acute psychosis: Admitted at NPU, management per psychaitry (2) Diastolic heart failure: It appears this is a fairly recent diagnosis. Ejection fraction of 45% with global hypokinesia Grade 1 diastolic heart failure. Echo results with EF of 45% global hypokinesia. Unclear etiology. Per review of notes from [facility], it appears it was thought to be cardiomyopathy related to persistent tachycardia. She was discharged on metoprolol 100 mg p.o. twice daily, however her blood pressure drops to 80 systolic with the current dosing. Recommend to reduce metoprolol dose to 25 mg p.o. twice daily at the time of discharge. Additionally counseled patient to maintain a blood pressure and heart rate chart by checking both vital signs twice a day at the same time. Asked to skip metoprolol if heart rate is less than 90.. Troponin in the hospital was not elevated. Patient denies any current complaints of chest pain. No acute ST-T wave changes noted on EKG. Recommended follow-up with cardiology, referral provided for outpatient evaluation of abnormal echocardiogram, evaluation of newly diagnosed cardiomyopathy. She may need ischemic workup with a stress test. May additionally need event monitor to ascertain the degree and persistence of tachycardia. TSH normal. BNP elevated at 4000, recommended to continue Lasix 20 mg daily. She is clinically euvolemic at discharge. Lower extremity edema is improved after resuming her home dose of Lasix. HbA1c not consistent with diagnosis of diabetes mellitus. Discontinue Jardiance. Defer to cardiology regarding using Jardiance purely for the purpose of heart failure in the absence of diabetes mellitus. Stable from a medicine standpoint for discharge back to home today. Follow-up with primary care physician on 09/21 arranged by NPU-advised to take her blood pressure and heart rate chart to PCP for review. (3) Heart failure with reduced ejection fraction: Attestations Medical Necessity Statement*: per admitting Coding Level of Care Code Acute Code for Chg Fwd Moderate MDM includes number and complexity of problems actively addressed during encounter, amount and/or complexity of data reviewed/ordered and described risk of complication, morbidity or mortality of management as documented Diagnoses Acute psychosis F23 Diastolic heart failure I50.30 Heart failure with reduced ejection fraction I50.20
[2023-09-16] MEDS: OLANZapine 5 mg ODT PO (18:08)
[2023-09-16] MEDS: trazodone 50 mg Tablet PO (20:13)
[2023-09-16] MEDS: OLANZapine 10 mg TABLET PO (20:13)
[2023-09-17] MEDS: ibuprofen 600 mg Tablet PO (05:31)
[2023-09-17 06:00] VITALS: BP 106/68; PULSE 120; RESP 17; TEMP 36.9; O2SAT 96
[2023-09-17] MEDS: FUROsemide 20 mg Tablet PO (08:05)
[2023-09-17] MEDS: ferrous sulfate EC 325 mg Tablet PO (08:05)
[2023-09-17] MEDS: pantoprazole DR 40 mg Tablet PO (08:05)
--- NOTE | 2023-09-17 08:29 | PC.NURSE ---
Patient denies anxiety, depression, SI, HI, AVH. Patient states that she is feeling okay. Patient was flat in affect.
--- NOTE | 2023-09-17 08:31 | PC.NURSE ---
Patient denies anxiety, depression, SI, HI, AVH. Patient states that she is feeling okay. Patient was flat in affect.
[2023-09-17 08:35] VITALS: RESP 16
[2023-09-17] MEDS: oxyCODONE 5 mg IR Tab/Cap 15 MG PO (08:35)
--- NOTE | 2023-09-17 09:33 | P.NPUDS_ITS ---
Reason for Visit Reason for Visit: 96 hr hold Brief History: History of Present Illness Piedad Ramirez is a 33 year old female who presented to the emergency department with the following report: Chief Complaint: Psychiatric Symptoms Stated Complaint: 96 hr hold Time Seen by Provider: 09/12/23 10:08 Source: patient and EMS Mode of arrival: EMS Limitations: no limitations History of Present Illness: Patient is a 33-year-old female presents to ED today via EMS after her mother called an ambulance for evaluation of hallucinations and concerning behaviors. Patient's mother is her legal guardian and power of workers compensation defense attorney. Mother states she has been hallucinating at home. She states she has been up all night for several days doing bizarre things. Mother has found her in the kitchen holding a knife asking where the dog is so she could stab it. Patient was recently admitted to [facility] in [place] for a month-mother states symptoms initially started while she was in the hospital. She has a known brain tumor/oligodendroglioma. She was told her behaviors were not secondary to tumor and has diagnosed her with attention seeking behaviors and multiple personality disorder. Had multiple other medical speciality consults while in patient. Patient tells me she is fine and wants to go home. Affidavit from the mother states that she is having confusion, delirium, and hallucinations. She has been physically aggressive to her siblings. She has gotten naked and jumped on her siblings bed in the middle of the night, scaring them. She has tried to elope during the night. She has been awaking her siblings in the middle of the night telling them its time for school. She has tried to jump out of the car and reportedly is not concerned with oncoming traffic. Father states she picks up the vacuum and has imaginary conversations with that as if it were a telephone. She reportedly talks to imaginary characters. She puts aluminum foil in the microwave and turns it on. Onset (ago): day(s) History of same: Yes Relieving factors: none Exacerbating factors: none Associated symptoms: Reports auditory hallucinations (per guardian) and visual hallucinations (per guardian); Deny depression, homicidal ideation or suicidal ideation Treatments prior to arrival: placed on mental health hold (parents filing affidavits at [facility] [place] currently ). She was admitted to the neuropsychiatric unit for definitive treatment of those issues. She presents today as a limited historian initially seeming to be too tired for the interview and unable to get herself alert. However when this job specification writer stood up and suggested that we could just speak another time she was able to become interactive. She spent most of the time reporting that her parents were the challenge and that they blame everything on me. She focused on them not liking her last fianc? and the problems that that caused but seem to have progressed past the fact that if they were not being helpful she and her fianc? would have had no place to stay and then when they did have their own place to stay there were concerns about alcohol use and whether or not they were providing a safe place for her 4 children. She could not really explain what is been going on recently with these bizarre behaviors. We discussed that she has had multiple consultations that have ruled out the likelihood that this is a sequela of her glioma. She confirmed as her mother discussed that she is never really been independently functional without one of her baby's father's assisting her or her parents assisting her with limited employment and no long periods of interpersonal success. When the conversation turned towards the psychosocial challenges including the recent break-up with her most recent fianc? having a possible impact on her behavior pattern and that she may have recently acknowledges that reality to her mother she reported having abdominal issues and having to go to the restroom to prevent having an accident concluding the conversation as she stayed in the bathroom for some time. We had discussed prior to that a plan to review her medications and try to clean up any polypharmacy and start focusing on a plan for DBT or CBT as the follow-up plan. She most recently had been staying with her mother with her 4 children until her escalating behaviors led to such a disruption in their sleep and schooling that she was brought to the emergency department. Hospital Course Hospital Course Patient slowly acclimated to the individual, group and milieu therapies provided. She presented after an extensive hospitalization in [place] wherein she had psychiatric care daily but was not transferred to the inpatient unit. Significant cluster B pathology was noted and she acknowledges that her behaviors are generally driven by internal emotional swings related to attention or jealousy excetra. We continued her home medications but discontinued significant pain medication as well as Depakote. We continued Zyprexa at bedtime and discontinued the morning dose. Such that she was on 10 mg p.o. nightly total. We did allow for a 5 mg Zyprexa Zydis as needed medication at discharge and discussed a significant need for intensive therapy CBT/DBT for there to be any chance of continued improvement. She worked with the social work team on getting appropriate outpatient follow-ups. She had significant improvement and was able to contract for safety outside of the hospital, prior to discharge. During the hospitalization, patient had routine laboratory studies which were within normal limits except for few outliers. Additionally there was a general medical evaluation which was also within normal limits and revealed no new acute processes. Discharge Summary: At the time of discharge, she denied psychosis or lethality. Mood and anxiety were well managed. Patient endorsed a plan to avoid all drugs of abuse and follow-up with the aftercare recommendations of the treatment team. Patient was evaluated and deemed to be absent credible lethality, and had achieved the maximum benefit from an inpatient hospitalization, so was discharged Mental Status Exam MSE Comments: This is an overweight versus obese white female in hospital scrubs with improving grooming and eye contact. No abnormal movements except for mild and resolving psychomotor retardation. Cooperative with exam in mild distress. Speech was more normal rate and volume. Mood described as a little better, affect was congruent and less subdued . Thought process appeared mostly organized. Thought content: patient denied suicidal or homicidal ideation, no delusions reported or noted, she denied auditory or visual hallucinations.? Attention and concentration were limited and memory was more reliable, but none were formally tested. She was alert and oriented times 3. Insight, judgment and impulse control were improving. Discharge Data Studies Completed and Pending: Completed Studies During Hospitalization Category Date Time Status XR chest 1V crystal ble [id number] Urgent Exams 09/12/23 11:28 Completed Radiology Impressions Chest X-Ray 09/12/23 11:28 IMPRESSION: No acute findings. Laboratory Results WBC 10.99 10^3/uL (3. 29-11.43) 09/12/23 11:15 RBC 3.30 10^6/uL (3.8 5-5.65) L 09/12/23 11:15 Hgb 10.70 g/dL (11.27 -16.99) L 09/12/23 11:15 Hct 34.4 % (36-47) L 09/12/23 11:15 MCV 104.2 fl (85-98) H 09/12/23 11:15 MCH 32.4 pg (27-33) 09/12/23 11:15 MCHC 31.1 g/dL (30-55) 09/12/23 11:15 RDW 14.9 % (12.1-15.1 ) 09/12/23 11:15 Plt Count 103 10^3/cmm (157 -399) L 09/12/23 11:15 MPV 9.7 fL (7.4-10.4) 09/12/23 11:15 Neut % (Auto) 68.2 % 09/12/23 11:15 Lymph % (Auto) 8.8 % 09/12/23 11:15 [place] % (Auto) 20.5 % 09/12/23 11:15 Eos % (Auto) 0.6 % 09/12/23 11:15 Baso % (Auto) 0.3 % 09/12/23 11:15 Neut # (Auto) 7.49 10^3/uL (1.8 -7.7) 09/12/23 11:15 Lymph # (Auto) 1.0 10^3/uL (0.8- 4.8) 09/12/23 11:15 [place] # (Auto) 2.3 10^3/uL (0.2- 0.9) H 09/12/23 11:15 Eos # (Auto) 0.1 10^3/uL (0.0- 0.8) 09/12/23 11:15 Baso # (Auto) 0.0 10^3/uL (0.0- 0.1) 09/12/23 11:15 Nucleated RBC % (a uto) 0 % 09/12/23 11:15 Nucleated RBCs # 0.0 /100WBC 09/12/23 11:15 Sodium 138 mmol/L (136-1 45) 09/14/23 11:02 Potassium 4.1 mmol/L (3.5-5 .1) 09/14/23 11:02 Chloride 104 mmol/L (98-10 7) 09/14/23 11:02 Carbon Dioxide 24 mmol/L (22-29) 09/14/23 11:02 Anion Gap 14.1 (5-19) 09/14/23 11:02 BUN 4 mg/dL (6-20) L 09/14/23 11:02 Creatinine 0.5 mg/dL (0.5-0. 9) 09/14/23 11:02 GFR Calculation 143.0 mL/min (90- 130) H 09/14/23 11:02 Glucose 103 mg/dL (65-115 ) 09/14/23 11:02 Estimat Average Gl ucose 82 09/14/23 11:02 Hemoglobin A1c 4.5 % (4.0-6.0) 09/14/23 11:02 Calculated Osmolal ity 283 mOsm/kg (285- 295) L 09/14/23 11:02 Calcium 8.7 mg/dL (8.5-10 .5) 09/14/23 11:02 Total Bilirubin 0.2 mg/dL (0.15-1 .2) 09/14/23 11:02 AST 16 U/L (0-32) 09/14/23 11:02 ALT 6 U/L (0-33) 09/14/23 11:02 Alkaline Phosphata se 106 U/L (35-105) H 09/14/23 11:02 Troponin T 5th Gen ng/L 12 ng/L (0-10) H 09/14/23 11:02 NT-Pro-B Natriuret Pep 4140 pg/mL (0-125 ) H 09/14/23 11:02 Total Protein 5.3 g/dL (6.6-8.7 ) L 09/14/23 11:02 Albumin 2.7 g/dL (3.5-5.2 ) L 09/14/23 11:02 Globulin 2.6 g/dL (1.3-4.6 ) 09/14/23 11:02 TSH 0.80 uIU/mL (0.27 -4.20) 09/12/23 11:15 HCG, Qual Negative (Negati ve) 09/12/23 11:15 Urine Color Yellow (Yellow) 09/12/23 20:42 Urine Appearance Clear (CLEAR) 09/12/23 20:42 Urine pH 6 (5-7) 09/12/23 20:42 Ur Specific Gravit y 1.020 (1.005-1.0 30) 09/12/23 20:42 Urine Protein Neg (Negative) 09/12/23 20:42 Urine Glucose (UA) 2+ (Normal) H 09/12/23 20:42 Urine Ketones 1+ (Negative) H 09/12/23 20:42 Urine Blood Neg (Negative) 09/12/23 20:42 Urine Nitrate Negative (Negati ve) 09/12/23 20:42 Urine Bilirubin Neg (Negative) 09/12/23 20:42 Urine Urobilinogen Neg mg/dL (Negati ve) 09/12/23 20:42 Ur Leukocyte Anabel ase Negative (Negati ve) 09/12/23 20:42 Salicylates < 0.3 mg/dL (3-10 ) L 09/12/23 11:15 Urine Opiates Scre en Positive ng/mL (N egative) H 09/12/23 11:12 Acetaminophen 9.9 ug/mL (10-30) L 09/12/23 11:15 Ur Barbiturates Sc reen Negative ng/mL (N egative) 09/12/23 11:12 Ur Phencyclidine S crn Negative ng/mL (N egative) 09/12/23 11:12 Ur Amphetamines Sc reen Negative ng/mL (N egative) 09/12/23 11:12 U Benzodiazepines Scrn Positive ng/mL (N egative) H 09/12/23 11:12 Urine Cocaine Scre en Negative ng/mL (N egative) 09/12/23 11:12 U Marijuana (THC) Screen Negative ng/mL (N egative) 09/12/23 11:12 Ethyl Alcohol < 10 mg/dL (0-10) 09/12/23 11:15 Influenza Type A A g Negative (Negati ve) 09/13/23 00:15 Influenza Type B A g Negative (Negati ve) 09/13/23 00:15 RSV Antigen Negative (Negati ve) 09/13/23 00:15 SARS-CoV-2 Ag (Rap id) Negative (Negati ve) 09/13/23 00:15 Vitals: Last Vital Signs Temp 98.5 F 09/17/23 06:00 Pulse 120 H 09/17/23 06:00 Resp 16 09/17/23 08:35 BP 106/68 09/17/23 06:00 Pulse Ox 96 09/17/23 06:00 O2 Del Method Room Air 09/17/23 06:00 Discharge Plan Discharge Patient Disposition: Home Condition: Stable Prescriptions: New trazodone 50 mg Tablet 50 mg PO BEDTIME PRN (Reason: Sleep) 30 Days Qty: 30 1RF hydroxyzine pamoate 25 mg Capsule 50 mg PO Q6H PRN (Reason: Anxiety) 30 Days Qty: 120 1RF metoprolol tartrate 25 mg tablet 25 mg PO BID PRN (Reason: heart rate > 100) 30 Days Qty: 60 0RF (DME) blood pressure monitor [Blood Pressure Kit] Kit See Rx Instructions .Route Qty: 1 0RF Rx Instructions: As directed Continued ondansetron HCl 4 mg tablet 4 mg PO BID PRN (Reason: Nausea And Vomiting) olanzapine 10 mg tablet 10 mg PO BEDTIME potassium chloride 20 mEq tablet,ER particles/crystals 40 meq PO DAILY pantoprazole 40 mg tablet,delayed release (DR/EC) 40 mg PO DAILY ferrous sulfate [FeroSul] 325 mg (65 mg iron) tablet 325 mg PO DAILY promethazine 25 mg tablet 25 mg PO Q6H PRN (Reason: Nausea And Vomiting) furosemide 20 mg tablet 20 mg PO DAILY naloxone [Narcan] 4 mg/actuation spray,non-aerosol See Rx Instructions .ROUTE .COMPLEX Rx Instructions: intranasally ;CALL 911 ADMINISTER A SINGLE SPRAY OF NARCAN IN ONE NOSTRIL REPEAT EVERY 2 TO 3 MINUTES NEEDED IF NO OR MINIMAL RESPONSE Valtoco 5 mg/spray (0.1 mL) spray,non-aerosol See Rx Instructions .ROUTE .COMPLEX Rx Instructions: 5 mg intranasally ;ADMINISTER ONE SPARY IN LEFT NOSTRIL ONE TIME NEEDED Changed olanzapine 5 mg tablet,disintegrating 5 mg PO DAILY PRN (Reason: Agitation) 30 Days Qty: 0 0RF oxycodone 15 mg tablet 15 mg PO Q8H PRN (Reason: Pain) 30 Days Qty: 0 0RF Discontinued metoprolol tartrate 100 mg tablet 100 mg PO BID divalproex 500 mg tablet,delayed release (DR/EC) 500 mg PO BID olanzapine 7.5 mg tablet 7.5 mg PO QAM morphine 15 mg tablet extended release 15 mg PO BID Rx Instructions: MAX OF 7 DAYS lorazepam 1 mg tablet 1 mg PO Q6H PRN (Reason: Anxiety) Jardiance 10 mg tablet 10 mg PO QAM No Action morphine 15 mg tablet extended release 15 mg PO Q12H Jardiance 10 mg tablet 10 mg PO QAM escitalopram oxalate 10 mg Tablet 10 mg PO DAILY 30 Days Qty: 30 1RF Discharge Orders: Discharge Order (Routine); Ordered 09/17/23 Ordered By: Willian Velázquez Referrals: [facility]-Dr. Saundra Mullins [Other] - 09/22/23 1:45 pm (Hospital follow up) [email or web address] [Other] Shefali Aponte MD [Physician] - 2 weeks (cardiomyopathy, reduced EF, CHF ) Cristal Gaming FNP [Primary Care Provider] - 7-10 days Discharge Diet: Regular Discharge Activity: Increase activity as tolerated Patient Instructions: Trazodone (By mouth) (Desyrel, Desyrel Dividose, Oleptro, Trazamine), Hydroxyzine (By mouth) (Vistaril), Anxiety (DC), Psychotic Disorder (DC), Opioid Safety Assessment: Dose of metoprolol has been changed from 100mg BID to 25mg BID as your blood pressure drops with higher doses. Please check your heart rate and BP twice a day at the same time every day. Take metoprolol if your heart rate is > 100. Please follow up with cardiology referral. Please take your BP chart to primary care physician and cardiology at your appointment time Discharge Attestations NPU Time Spent in Discharge Care*: less than 30 min Specific Discharge Activities: Specific discharge activities: educating patient, discussing with comp field case manager/social workers/dc planners, documenting/other paperwork and evaluating patient/reviewing data Coding Level of Care Code Acute Code for Chg Fwd
[2023-09-17 09:53] VITALS: RESP 16
[2023-09-17] MEDS: OLANZapine 5 mg ODT PO (10:16)
== END 2023-09-17 11:55 | disposition home or self-care (01) | DRG 885 ==
LOC: ER 09-13 12:09 → NP 09-13 13:31
PROVIDERS: Physician Assistant; Student in an Organized Health Care Education/Training Program; Admitting Provider Psychiatry & Neurology Psychiatry; Emergency Provider Physician Assistant; PCP Nurse Practitioner; Visit Provider Psychiatry & Neurology Psychiatry
DX: F23 Brief psychotic disorder (principal); I50.32 Chronic diastolic (congestive) heart failure; C71.9 Malignant neoplasm of brain, unspecified; Z63.0 Problems in relationship with spouse or partner; Z62.820 Parent-biological child conflict; F41.9 Anxiety disorder, unspecified; F60.89 Other specific personality disorders
CPT/HCPCS: 36415; 71045; 80053; 80306; 80307; 81003; 83036; 83880; 84443; 84484; 84703; 85025; 87426; 87804; 87899; 93005; 96360; 97150; 97165; 99285; J7030; Q0162

== ENCOUNTER 2023-09-17 18:02 | Inpatient (IN) | payer BC, SELFPAY ==
[2023-09-17] VITALS (9 sets, daily range): BP systolic 94–137; BP diastolic 74–100; PULSE 109–199; RESP 16–23; TEMP 37.6; O2SAT 90–100
--- NOTE | 2023-09-17 18:08 | ECG_ITS ---
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 Measurements Intervals [place] Rate: 139 P: 73 WV: 139 QRS: 59 QRSD: 72 T: 61 QT: 329 QTc: 501 Interpretive Statements SINUS TACHYCARDIA NONSPECIFIC T-WAVE ABNORMALITY Compared to ECG 09/16/2023 15:03:28 Sinus rhythm no longer present Sinus arrhythmia no longer present Short WV interval no longer present Intraventricular conduction delay no longer present T-wave abnormality still present Electronically Signed On 09-18-2023 11:09:47 CDT by James Simpson M.D. [id number]
[2023-09-17] MEDS: ziprasidone 20 mg/mL SDV IM (18:15)
[2023-09-17] MEDS: water for injection-sterile 10 ML 2.10000000000000009 ML (18:15)
[2023-09-17] MEDS: ketamine 100 mg/mL Inj 5 mL 300 MG IM (18:16)
--- NOTE | 2023-09-17 18:27 | ED.C_ITS ---
HPI - Psych 2 General: Chief Complaint: Psychiatric Symptoms Stated Complaint: MHE Time Seen by Provider: 09/17/23 18:07 History of Present Illness: 33-year-old female with a psychiatric hi story as well as history of a brain tumor, I believe an oligodendroglioma. She presents with altered mental status, violent behavior, nonsensical speech, evidently following a seizure at home. The patient is not able to give a history. Family members provided EMS with a history of a generalized seizure, followed by the above behavior that did not stop at home. 911 was called. EMS gave the patient 10 mg of Versed en route, without therapeutic effect. She had to be restrained en route. She is transferred directly to restraint bed on arrival here. Further history not available at this time. She was just released evidently from the neuropsychiatric unit following similar behaviors that brought her to the emergency room on 09/11. Review of Systems 2 General: Reports: ROS unobtainable due to mental status PFSH ED 2 PFSH: Medical History (Updated 09/18/23 @ 02:23 by Dayton Cohen DO) SVT (supraventricular tachycardia) Acute psychosis History of paranoid disorder History of seizures History of cardiomyopathy History of paroxysmal supraventricular tachycardia History of glioma Surgical History (Updated 09/17/23 @ 23:54 by Lasha Gilman MD) History of craniotomy Social History (Updated 09/17/23 @ 23:54 by Lasha Gilman MD) Alcohol intake: never Substance/Drug Use: never Physical Exam 2 Const: GENERAL APPEARANCE: in distress; not cooperative and not well kempt HENMT: COMMON NORMALS: normocephalic, atraumatic and Normal external nose present HEAD & SCALP: normocephalic and atraumatic FACE & SINUS: normal facial exam and face symmetric NOSE: Normal external nose present MOUTH: t ongue normal Eye: COMMON NORMALS: Equal, round and reactive pupils present PUPIL: Yes Equal, round and reactive pupils present and Yes Dilated pupils (Equal dilation bilaterally) Neck/C-Spine: GENERAL: Yes normal visual inspection and Yes trachea midline Chest: CHEST: Yes Symmetrical chest wall rise Resp: COMMON NORMALS: No use of accessory muscles and clear to auscultation bilaterally AUSCULTATION: clear to auscultation bilaterally Cardio: COMMON NORMALS: regular rhythm RATE: tachycardic RHYTHM: regular rhythm GI: COMMON NORMALS: Normal to inspection, nondistended, normoactive bowel sounds present Extremity: COMMON NORMALS: capillary refill normal Neuro: SERENITY COMA SCALE: other (Patient not cooperative with neurological exam.) Psych: APPEARANCE: No well kempt Face to Face: Restrn/Seclusion Events leading up to initiation: Combative/Striking out at staff or others Evaluation of patient's immediate situation: Signs of physical distress and Signs of psychological distress Patient reaction since intervention applied: Behaviors/threats have lessened, but still present Recent labs reviewed: Yes Review of medications: Yes Patient's current medical/behavioral condition: No new concerns since last ROS Need for restraint or seclusion is: Continued Attending notified: Attending completed assessment Course 2 Vital Signs: Vital signs: Vital Signs Temperature 99.6 F 09/18/23 00:00 Pulse Rate 127 H 09/18/23 00:30 Respiratory Rate 28 H 09/18/23 00:30 Blood Pressure 116/75 09/18/23 00:30 Pulse Oximetry 93 09/18/23 00:30 Oxygen Delivery Me thod Room Air 09/18/23 00:30 MDM - Psych Medical Decision Making 33-year-old female who was just released from the NPU. She presents with strange movements, significant agitation, some nonsensical speech, and combativeness. She has required quite a large amount of medication including ketamine, Geodon, Ativan, and Haldol. She is still somewhat agitated. She is still significantly tachycardic. Heart rate still in the 140s. I spoke with psychiatry. We both feel that with the tachycardia, and the amount of medication required for this patient already, stabilization in the ICU setting may be more appropriate than going straight back to neuropsychiatry. Spoke with hospitalist he will evaluate the patient. He seems to agree. Lab Data 09/17/23 18:21 09/17/23 18:[address] 09/17/23 18:29 IMPRESSION: No CT evidence of acute intracranial pathology. Laboratory Results WBC 10.31 10^3/uL (3.29-11.43) 09/17/23 18:21 RBC 3.48 10^6/uL (3.85-5.65) L 09/17/23 18:21 Hgb 11.30 g/dL (11.27-16.99) 09/17/23 18:21 Hct 34.6 % (36-47) L 09/17/23 18:21 MCV 99.4 fl (85-98) H 09/17/23 18:21 MCH 32.5 pg (27-33) 09/17/23 18:21 MCHC 32.7 g/dL (30-55) 09/17/23 18:21 RDW 14.8 % (12.1-15.1) 09/17/23 18:21 Plt Count 103 10^3/cmm (157-399) L 09/17/23 18:21 MPV 8.8 fL (7.4-10.4) 09/17/23 18:21 Neut % (Auto) 70.1 % 09/17/23 18:21 Lymph % (Auto) 11.2 % 09/17/23 18:21 [place] % (Auto) 16.6 % 09/17/23 18:21 Eos % (Auto) 0.1 % 09/17/23 18:21 Baso % (Auto) 0.4 % 09/17/23 18:21 Neut # (Auto) 7.24 10^3/uL (1.8-7.7) 09/17/23 18:21 Lymph # (Auto) 1.2 10^3/uL (0.8-4.8) 09/17/23 18:21 [place] # (Auto) 1.7 10^3/uL (0.2-0.9) H 09/17/23 18:21 Eos # (Auto) 0.0 10^3/uL (0.0-0.8) 09/17/23 18:21 Baso # (Auto) 0.0 10^3/uL (0.0-0.1) 09/17/23 18:21 Nucleated RBC % (auto) 0 % 09/17/23 18:21 Nucleated RBCs # 0.0 /100WBC 09/17/23 18:21 ESR 16 mm/hr (0-15) H 09/17/23 18:21 D-Dimer 2.03 ug/mLFEU (0-0.59) H 09/17/23 18:21 Sodium 139 mmol/L (136-145) 09/17/23 18:21 Potassium 3.9 mmol/L (3.5-5.1) 09/17/23 18:21 Chloride 101 mmol/L (98-107) 09/17/23 18:21 Carbon Dioxide 24 mmol/L (22-29) 09/17/23 18:21 Anion Gap 17.9 (5-19) 09/17/23 18:21 BUN 3 mg/dL (6-20) L 09/17/23 18:21 Creatinine 0.5 mg/dL (0.5-0.9) 09/17/23 18:21 GFR Calculation 143.0 mL/min (90-130) H 09/17/23 18:21 Glucose 110 mg/dL (65-115) 09/17/23 18:21 Calculated Osmolality 285 mOsm/kg (285-295) 09/17/23 18:21 Calcium 8.8 mg/dL (8.5-10.5) 09/17/23 18:21 Phosphorus 3.4 mg/dL (2.5-4.5) 09/17/23 18:21 Magnesium 1.5 mg/dL (1.7-2.3) L 09/17/23 18:21 Total Bilirubin 0.3 mg/dL (0.15-1.2) 09/17/23 18:21 AST 20 U/L (0-32) 09/17/23 18:21 ALT 8 U/L (0-33) 09/17/23 18:21 Alkaline Phosphatase 121 U/L (35-105) H 09/17/23 18:21 Creatine Kinase 48 U/L (26-192) 09/17/23 18:21 C-Reactive Protein 11.2 mg/L (0.0-4.9) H 09/17/23 18:21 Total Protein 5.4 g/dL (6.6-8.7) L 09/17/23 18:21 Albumin 3.2 g/dL (3.5-5.2) L 09/17/23 18:21 Globulin 2.2 g/dL (1.3-4.6) 09/17/23 18:21 Procalcitonin 0.85 ng/mL (0-0.5) H 09/17/23 18:21 Prolactin 24.99 ng/mL (4.8-23.3) H 09/17/23 18:21 HCG, Qual Negative (Negative) 09/17/23 18:21 Salicylates < 0.3 mg/dL (3-10) L 09/17/23 18:21 Acetaminophen < 5.0 ug/mL (10-30) L 09/17/23 18:21 Ethyl Alcohol < 10 mg/dL (0-10) 09/17/23 18:21 All radiology interpretation(s) finalized by discharge ED provider radiology interpretation(s): This case had a high probability of a clinically significant, sudden, or life threatening deterioration of this patient's condition which required my full and direct attention, intervention and personal management. Critical Care Time 2 Critical Care Time: Critical Care Time: Yes Total Critical Care Time: 35 Attestation: This case had a high probability of a clinically significant, sudden, or life threatening deterioration of this patient's condition which required my full and direct attention, intervention and personal management. Time is independent of any procedures performed Discharge Plan Discharge Patient Disposition: Admitted As Inpatient Admit Provider: Lasha Gilman Clinical Impression: Acute encephalopathy, Sinus tachycardia Condition: Stable Coding Level of Care Code ED Separations Scientist for Arvind Lindo
--- NOTE | 2023-09-17 18:29 | CTR_ITS ---
PROCEDURE INFORMATION: Exam: CT Head Without Contrast Exam date and time: 09/17/2023 6:40 PM Age: 33 years old Clinical indication: Altered mental status/memory loss; Additional info: AMS TECHNIQUE: Imaging protocol: Computed tomography of the head without contrast. Axial, coronal and sagittal reformatted images were created and reviewed. Radiation optimization: All CT scans at this facility use at least one of these dose optimization techniques: automated exposure control; mA and/or kV adjustment per patient size (includes targeted exams where dose is matched to clinical indication); or iterative reconstruction. COMPARISON: No relevant prior studies available. RADIATION DOSE METRICS: Total DLP (mGy-cm): 1110.98 FINDINGS: Brain: No CT evidence of acute intracranial hemorrhage or acute territorial infarction. No significant mass effect or midline shift. Basal cisterns patent. Cerebral ventricles: Normal in size and configuration. Paranasal sinuses: Unremarkable. No fluid levels. Mastoid air cells: Grossly unremarkable. Bones/joints: No acute osseous abnormality. Soft tissues: Grossly unremarkable. CT/CT head wo con* [id number] IMPRESSION: No CT evidence of acute intracranial pathology.
[2023-09-17 18:34] LABS: Basophils % 0.4 %; Eosinophils % 0.1 %; Hematocrit 34.6 % (36-47); Lymphocytes # 1.2 10^3/uL (0.8-4.8); Lymphocytes % 11.2 %; Mean Corpuscular HGB Conc 32.7 g/dL (30-55); Mean Corpuscular Hemoglobin 32.5 pg (27-33); Mean Corpuscular Volume 99.4 fl (85-98); Mean Platelet Volume 8.8 fL (7.4-10.4); Monocytes # 1.7 10^3/uL (0.2-0.9); Monocytes % 16.6 %; Neutrophils # 7.24 10^3/uL (1.8-7.7); Neutrophils % 70.1 %; Nucleated Red Blood Cells % 0 %; Platelet Count 103 10^3/cmm (157-399); Red Blood Count 3.48 10^6/uL (3.85-5.65); Red Cell Distribution Width 14.8 % (12.1-15.1); White Blood Count 10.31 10^3/uL (3.29-11.43)
[2023-09-17] MEDS: LORazepam 2 mg/mL INJ 10 mL MDV IVP ×2 (18:34→19:35)
[2023-09-17 18:41] LABS: HCG, Serum Qual Negative (Negative)
[2023-09-17 18:54] LABS: Alanine Aminotransferase 8 U/L (0-33); Albumin Level 3.2 g/dL (3.5-5.2); Alkaline Phosphatase 121 U/L (35-105); Anion Gap 17.9 (5-19); Aspartate Amino Transferase 20 U/L (0-32); Blood Urea Nitrogen 3 mg/dL (6-20); Calcium 8.8 mg/dL (8.5-10.5); Carbon Dioxide 24 mmol/L (22-29); Chloride 101 mmol/L (98-107); Creatine Phosphokinase 48 U/L (26-192); Globulin 2.2 g/dL (1.3-4.6); Glucose 110 mg/dL (65-115); Magnesium 1.5 mg/dL (1.7-2.3); Osmolality Calculated 285 mOsm/kg (285-295); Phosphorus 3.4 mg/dL (2.5-4.5); Potassium 3.9 mmol/L (3.5-5.1); Sodium 139 mmol/L (136-145); Total Bilirubin 0.3 mg/dL (0.15-1.2); Total Protein 5.4 g/dL (6.6-8.7)
[2023-09-17 18:58] LABS: Acetaminophen < 5.0 ug/mL (10-30); Alcohol Level < 10 mg/dL (0-10); Salicylate < 0.3 mg/dL (3-10)
[2023-09-17 19:05] LABS: Prolactin 24.99 ng/mL (4.8-23.3)
[2023-09-17] MEDS: haloperidol inj 5 mg/mL INJ 1 mL IVP ×2 (19:34→22:07)
[2023-09-17] MEDS: sodium chloride 0.9% 1,000 ML 999 ML IV (20:21)
[2023-09-17] MEDS: LORazepam 2 mg/mL INJ 10 mL MDV IV (22:07)
[2023-09-17 22:15] LABS: Erythrocyte Sedimentation Rate 16 mm/hr (0-15)
[2023-09-17 22:19] LABS: D Dimer 2.03 ug/mLFEU (0-0.59)
[2023-09-17 22:29] LABS: C Reactive Protein 11.2 mg/L (0.0-4.9)
[2023-09-17 22:36] LABS: Procalcitonin 0.85 ng/mL (0-0.5)
[2023-09-17 23:09] LABS: Troponin(5th) Baseline 18 ng/L (0-10)
--- NOTE | 2023-09-17 23:37 | PC.RESP ---
STAT EKG ORDERED 09/17/2023 @ 2152 NOT COMPLETED WHILE PATIENT IN ER.
--- NOTE | 2023-09-17 23:39 | P.HP_ITS ---
Providers/Chief Complaint 2 Admitting Physician: Lasha Gilman MD Chief Complaint: MHE History of Present Illness Piedad Ramirez is a 33 year old female with a past medical history of glioma status post craniotomy, history of seizure disorder secondary glioma was on Depakote, currently off Depakote, history of SVT, history of sinus tachycardia, history of chronic pain, obesity, history of tachycardia induced cardiomyopathy, history of EF of 45%, diastolic CHF, history of acute psychosis, paranoia, who presents to [facility] due to seizure-like episode, increased agitation, encephalopathy. Currently patient has received several sedating medication and she is sleeping, she does awaken, but falls back asleep, currently telemetry monitoring shows sinus tachycardia heart rates in the 120s, normotensive, on room air, saturating in the high 90s, patient's family members are at bedside. According to patient's family, she was her normal self since discharge, but this evening, she had an episode of a grand mall seizure which they feel she became unresponsive, had diffuse shaking, lasting a few minutes, but right after she was alert awake, she really did not have any postictal symptoms but family tells me that right after the episode she became very agitated started hitting people started running around acting very paranoid, this episode happened twice and after every episode she became quite violent, encephalopathic, had nonsensical speech, was confused, EMS on arrival gave her 10 note Versed, she had to be restrained on route, in the emergency room, patient received several doses of lorazepam, Geodon, Haldol, family members at bedside are concerned that after the seizure-like episodes, they are not sure if they were real or not but they appeared that if she was real she became very paranoid very agitated very violent, and they were unable to control her behaviors, this happened around her 4 children For her history of glioma, left upper oral, he is undergoing surgical resection, on oral chemotherapy history of seizures, was on Keppra and Topamax and weaned off Depakote, on diazepam nasal spray for breakthrough seizures, EEG was noted to be negative at facility at [facility], neurology was consulted Patient has a known history of seizure disorder secondary to glioma, MRI 08/11/2023 shows unchanged nonenhancing infiltrative neoplasm in the left insula, subinsular region, anterior temporal lobe Is on several pain medications including MS Contin 15 mg every 12 hours, was on oxycodone 15 mg tablet every 4 hours for pain, lorazepam 0.5 mg tablet every 8 hours, During her hospitalization at [facility] was roughly for a month, she was noted to have paranoia, hallucinations, she had persistent tachycardia she was on Keppra which was switched to Depakote as there was concern that Keppra was causing mood symptoms, on scheduled olanzapine, she is tapered off Topamax There was plans on increased anemia chemotherapy during the hospitalization, but they were not administered due to concerns for tachycardia She was also noted to have SVT at the facility and episodes of sinus tachycardia, managed on a beta-aris, cardiology was consulted She was also found to have cardiac myopathy, midrange EF, concerns for tachycardia induced cardiomyopathy, on Lopressor Review of Systems 2 General: Reports: ROS unobtainable due to medical condition and ROS unobtainable due to mental status Medications/Allergies Home Medications Medication Instructions Recorded Confirmed Last Taken Type diazepam 5 mg/spray (0.1 mL) nasal See Rx Instructions .Route .COMPLEX 09/12/23 09/12/23 Unknown History spray (Valtoco) ferrous sulfate 325 mg (65 mg 325 mg PO DAILY 09/12/23 09/12/23 Unknown History iron) tablet (FeroSul) furosemide 20 mg tablet 20 mg PO DAILY 09/12/23 09/12/23 Unknown History naloxone 4 mg/actuation nasal See Rx Instructions .Route .COMPLEX 09/12/23 09/12/23 Unknown History spray (Narcan) olanzapine 10 mg tablet 10 mg PO BEDTIME 09/12/23 09/12/23 Unknown History ondansetron HCl 4 mg tablet 4 mg PO BID PRN Nausea And Vomiting 09/12/23 09/12/23 Unknown History pantoprazole 40 mg tablet,delayed 40 mg PO DAILY 09/12/23 09/12/23 Unknown History release potassium chloride 20 mEq 40 meq PO DAILY 09/12/23 09/12/23 Unknown History tablet,extended release(part/cryst) promethazine 25 mg tablet 25 mg PO Q6H PRN Nausea And 09/12/23 09/12/23 Unknown History Vomiting hydroxyzine pamoate 25 mg capsule 50 mg (2 x 25 mg) PO Q6H PRN 09/16/23 Unknown Rx Anxiety 30 days #120 caps trazodone 50 mg tablet 50 mg PO BEDTIME PRN Sleep 30 days 09/16/23 Unknown Rx #30 tabs blood pressure monitor (Blood #1 ea 09/17/23 Unknown Rx Pressure Kit) metoprolol tartrate 25 mg tablet 25 mg PO BID PRN heart rate > 100 09/17/23 Unknown Rx 30 days #60 tabs olanzapine 5 mg disintegrating 5 mg PO DAILY PRN Agitation 30 09/17/23 09/12/23 Unknown Rx tablet days #0 tabs oxycodone 15 mg tablet 15 mg PO Q8H PRN Pain 30 days #0 09/17/23 09/12/23 Unknown Rx tabs Allergies Allergy/AdvReac Type Severity Reaction Status Date / Time latex Allergy Intermediate ADR-Itching Verified 07/08/21 10:27 Sulfa (Sulfonamide Allergy Intermediate ADR-Itching Verified 07/08/21 10:27 Antibiotics) sulfamethoxazole Allergy Intermediate ADR-Itching Verified 07/08/21 10:27 [From Bactrim] trimethoprim [From Bactrim] Allergy Intermediate ADR-Itching Verified 07/08/21 10:27 PFSH Acute 2 PFSH: Medical History (Updated 09/17/23 @ 23:57 by Lasha Gilman MD) SVT (supraventricular tachycardia) History of paranoid disorder History of seizures History of cardiomyopathy History of paroxysmal supraventricular tachycardia History of glioma Surgical History (Updated 09/17/23 @ 23:54 by Lasha Gilman MD) History of craniotomy Social History (Updated 09/17/23 @ 23:54 by Lasha Gilman MD) Alcohol intake: never Substance/Drug Use: never Vitals/I&O/Wt Last Vital Signs Pulse 112 H 09/17/23 22:27 Resp 16 09/17/23 22:27 Pulse Ox 98 09/17/23 22:27 O2 Del Method Room Air 09/17/23 23:36 09/17/23 09/17/23 09/18/23 14:59 22:59 06:59 Intake Total Balance Weight last 48 hrs Weight 80.83 kg Physical Exam 2 Const: COMMON NORMALS: no acute distress ORIENTATION/CONSCIOUSNESS: Yes awake and Yes confused; not oriented to person, not oriented to place and not oriented to time HENMT: COMMON NORMALS: normocephalic HEAD & SCALP: normocephalic Eye: COMMON NORMALS: Equal, round and reactive pupils present Neck/C-Spine: COMMON NORMALS: no lymphadenopathy Resp: COMMON NORMALS: normal respiratory effort, No retractions, No use of accessory muscles and clear to auscultation bilaterally AUSCULTATION: clear to auscultation bilaterally Cardio: COMMON NORMALS: regular rate, regular rhythm, S1 normal heart sound present and S2 normal heart sound present RATE: tachycardic RHYTHM: r egular rhythm HEART SOUNDS: S1 normal heart sound present and S2 normal heart sound present GI: COMMON NORMALS: Normal to inspection, nondistended, normoactive bowel sounds present, Soft to palpation and non-tender Extremity: COMMON NORMALS: no pedal edema Neuro: OTHER: Does not follow neurologic testing Data 09/17/23 18:21 09/17/23 18:21 A&P Assessment and plan (1) Sinus tachycardia: (2) Acute encephalopathy: (3) Seizures: (4) Agitation: (5) Violent behavior: (6) History of glioma: Plan Acute encephalopathy, ? Likely combination of effect of Versed, Haldol, Ativan, Geodon, ketamine ? Possibly postictal symptoms, seizure -Possibly seizures related to her glioma, Depakote 500 mg twice daily, seizure precautions ? Resume her Depakote 500 mg twice daily -As there is concerns for possible seizures, CT head within normal limits I will give her a dose of Decadron 10 mg IV push once -Neurochecks, night stroke scale, aspiration precautions Sinus tachycardia, NSVT -Possibly beta-aris withdrawal -New metoprolol 50 twice daily -Will start titrating up based on clinical progress ? CT angio of the chest Hallucinations, paranoia, violent behavior, -Etiology uncertain -Psychiatry consulted History of tachycardia induced cardiomyopathy, diastolic CHF Exa?monitor for fluid overload For her history of glioma, left upper oral, he is undergoing surgical resection, on oral chemotherapy history of seizures, was on Keppra and Topamax and weaned off Depakote, on diazepam nasal spray for breakthrough seizures, EEG was noted to be negative at facility at [facility], neurology was consulted Patient has a known history of seizure disorder secondary to glioma, MRI 08/11/2023 shows unchanged nonenhancing infiltrative neoplasm in the left insula, subinsular region, anterior temporal lobe Is on several pain medications including MS Contin 15 mg every 12 hours, was on oxycodone 15 mg tablet every 4 hours for pain, lorazepam 0.5 mg tablet every 8 hours, During her hospitalization at [facility] was roughly for a month, she was noted to have paranoia, hallucinations, she had persistent tachycardia she was on Keppra which was switched to Depakote as there was concern that Keppra was causing mood symptoms, on scheduled olanzapine, she is tapered off Topamax There was plans on increased anemia chemotherapy during the hospitalization, but they were not administered due to concerns for tachycardia She was also noted to have SVT at the facility and episodes of sinus tachycardia, managed on a beta-aris, cardiology was consulted She was also found to have cardiac myopathy, midrange EF, concerns for tachycardia induced cardiomyopathy, on Lopressor Attestations 2 Medical Necessity Statement*: Patient requires hospitalization, inpatient, greater than 2 midnights for acute encephalopathy, violent behavior, seizures, sinus tachycardia, hallucinations Diagnoses Sinus tachycardia R00.0 Acute encephalopathy G93.40 Seizures R56.9 Agitation R45.1 Violent behavior R45.6 History of glioma Z85.849
[2023-09-17] MEDS: dexamethasone 10 mg/mL INJ IVP (23:43)
[2023-09-17] MEDS: pantoprazole 40 mg SDV IVP (23:43)
[2023-09-17] MEDS: dextrose 5%-sod chloride 0.9% 1,000 ML 100 ML IV (23:46)
[2023-09-17] MEDS: morphine 4 mg/mL SDV 1 mL 2 MG IVP (23:50)
--- NOTE | 2023-09-17 23:52 | ECG_ITS ---
[facility] Test Date: 2023-09-17 Pat Name: Piedad Ramirez Department: Room: [facility]05 Gender: Female Order Builder: : 1990 Requested By: Lasha Gilman Order Number: [id number] Sydnie MD: James Simpson M.D. Measurements Intervals [place] Rate: 198 P: 0 OH: 0 QRS: 63 QRSD: 82 T: 64 QT: 214 QTc: 388 Interpretive Statements SUPRAVENTRICULAR TACHYCARDIA NONSPECIFIC ST & T-WAVE ABNORMALITY Compared to ECG 09/17/2023 18:24:36 Sinus tachycardia no longer present T-wave abnormality still present Electronically Signed On 09-18-2023 11:17:20 CDT by James Simpson M.D. [id number]
[2023-09-18] VITALS (28 sets, daily range): BP systolic 94–136; BP diastolic 60–88; PULSE 74–181; RESP 19–28; TEMP 36.9–37.8; O2SAT 90–96
[2023-09-18] MEDS: magnesium sulfate premix 2 GM/50 ML PIGGYBACK IV (00:01)
[2023-09-18] MEDS: enoxaparin 40 mg/0.4 mL Syringe SUBCUT ×2 (00:06→23:01)
--- NOTE | 2023-09-18 00:10 | PC.NURSE ---
Admit Received to ICU room 5 via stretcher from ED with RN and security system engineer at beside. Patient yelling and has rambling excess speech with frequent profanity. Unable to understand most speech. CM shows SVT with rate 170-200, notified Dr. Gilman. Blood pressure stable at present time. Order given per Dr. Gilman to place abernathy cath to obtain urine drug screen and UA. Notified Dr. gilman that we are unable to give PO meds currently. Multiple bruising noted all over body in different stages of healing.
[2023-09-18 00:34] LABS: Lactic Sepsis W/Reflex 2.3 mmol/L (0.5-2.2)
[2023-09-18 00:44] LABS: NT Pro B Type Natriuretic Pept 977 pg/mL (0-125)
[2023-09-18 00:53] LABS: Protein Urine Neg (Negative); Specific Gravity, Urine 1.005 (1.005-1.030); Urine Appearance Clear (CLEAR); Urine Color Yellow (Yellow); pH Urine 7 (5-7)
[2023-09-18 00:54] LABS: Add Urine Culture? Yes; Add Urine Microscopic? YES; Bacteria Urine TRACE /hpf; Bilirubin Urine Neg (Negative); Blood Urine 3+ (Negative); Glucose Urine UA Norm (Normal); Ketones Urine 1+ (Negative); Leukocyte Esterase Urine Negative (Negative); Mucus Urine 1+ /hpf; Nitrate Urine Negative (Negative); RBC Urine 25-40 /hpf (0-2); Squamous Epithelial Cell Urine 0-4 /hpf (0-5); Urobilinogen Urine Neg (Negative); WBC Urine 0-4 /hpf (0-5)
[2023-09-18 00:55] LABS: Amphetamines Screen Urine Negative (Negative); Barbiturates Screen Urine Negative (Negative); Benzodiazepines Screen Urine Positive (Negative); Cocaine Screen Urine Negative (Negative); Opiate Screen Urine Negative (Negative); PCP Screen Urine Negative (Negative); THC Screen Urine Negative (Negative)
[2023-09-18] MEDS: dexmedeTOMIDine 0.9 % NaCL 400 MCG/100 ML PREMIX 2.02000000000000002 MCG IV (01:12)
[2023-09-18 01:57] LABS: Reflex Lactate Order REFLEX LACTIC ORDERD
[2023-09-18] MEDS: LORazepam 2 mg/mL INJ 10 mL MDV 1 MG IVP (03:13)
--- NOTE | 2023-09-18 03:52 | ECG_ITS ---
[facility] Test Date: 2023-09-18 Pat Name: Piedad Ramirez Department: Room: [facility]05 Gender: Female Hand Clerical Verifier: : 1990 Requested By: Lasha Gilman Order Number: [id number] Sydnie MD: James Simpson M.D. Measurements Intervals [place] Rate: 154 P: 0 VT: 0 QRS: 31 QRSD: 56 T: 3 QT: 291 QTc: 466 Interpretive Statements SINUS TACHYCARDIA LOW QRS VOLTAGE IN PRECORDIAL LEADS [QRS DEFLECTION < 1.0 mV IN CHEST LEADS] Compared to ECG 09/17/2023 23:05:21 Low QRS voltage now present T-wave abnormality no longer present Electronically Signed On 09-18-2023 11:16:17 CDT by James Simpson M.D. [id number]
--- NOTE | 2023-09-18 03:59 | PC.NURSE ---
Attempted to take patient to CT for CTA of chest as ordered. Patient becomes very agitated and attempting to get out of bed. Notified Dr. Live that we are unable to take patient to CT at present time and will continue to titrate Precedex up.
[2023-09-18 04:32] LABS: Basophils % 0.3 %; Hematocrit 31.8 % (36-47); Lymphocytes # 0.9 10^3/uL (0.8-4.8); Lymphocytes % 11.4 %; Mean Corpuscular HGB Conc 32.1 g/dL (30-55); Mean Corpuscular Hemoglobin 32.3 pg (27-33); Mean Corpuscular Volume 100.6 fl (85-98); Mean Platelet Volume 9.7 fL (7.4-10.4); Monocytes # 0.4 10^3/uL (0.2-0.9); Monocytes % 5.4 %; Neutrophils % 79.6 %; Nucleated Red Blood Cells % 0 %; Platelet Count 127 10^3/cmm (157-399); Red Blood Count 3.16 10^6/uL (3.85-5.65); Red Cell Distribution Width 14.9 % (12.1-15.1); White Blood Count 7.91 10^3/uL (3.29-11.43)
[2023-09-18 04:52] LABS: Troponin 5 6HR 13.46 ng/L (0-10)
[2023-09-18 04:55] LABS: Lactic Acid level (Lactate) 1.2 mmol/L (0.5-2.2); Troponin 5 6HR Delta -4.54 ng/L (0-12)
[2023-09-18 04:59] LABS: Alanine Aminotransferase 8 U/L (0-33); Alkaline Phosphatase 113 U/L (35-105); Anion Gap 13.3 (5-19); Aspartate Amino Transferase 17 U/L (0-32); Blood Urea Nitrogen 2 mg/dL (6-20); Calcium 8.4 mg/dL (8.5-10.5); Carbon Dioxide 25 mmol/L (22-29); Chloride 109 mmol/L (98-107); Glucose 152 mg/dL (65-115); Magnesium 2.3 mg/dL (1.7-2.3); Osmolality Calculated 295 mOsm/kg (285-295); Phosphorus 3.2 mg/dL (2.5-4.5); Potassium 4.3 mmol/L (3.5-5.1); Sodium 143 mmol/L (136-145); Total Bilirubin 0.2 mg/dL (0.15-1.2)
--- NOTE | 2023-09-18 07:01 | CTR_ITS ---
PROCEDURE INFORMATION: Exam: CTA Chest With Contrast Exam date and time: 09/18/2023 2:10 PM Age: 33 years old Clinical indication: Abnormal findings; Other: Elevated d dimer; Additional info: Sinus tachycardia, elevated d dimer TECHNIQUE: Imaging protocol: Computed tomographic angiography of the chest with contrast. Exam focused on the arteries. 3D rendering (Not supervised by radiologist): MIP and/or 3D reconstructed images were created by the technologist. Radiation optimization: All CT scans at this facility use at least one of these dose optimization techniques: automated exposure control; mA and/or kV adjustment per patient size (includes targeted exams where dose is matched to clinical indication); or iterative reconstruction. Contrast material: OMNI 350; Contrast volume: 57 ml; Contrast route: INTRAVENOUS (IV); COMPARISON: CR XR chest 1V portable [id number] 09/12/2023 12:09 PM RADIATION DOSE METRICS: Total DLP (mGy-cm): 393.57 FINDINGS: Pulmonary arteries: Normal. No pulmonary emboli. Aorta: No aortic aneurysm. No aortic dissection. Lungs: Nodular opacities with surrounding ground-glass attenuation noted in the posterior right upper lobe. Posterior bibasilar atelectasis noted. No masses. Pleural spaces: No pneumothorax. No pleural effusion. Heart: No cardiomegaly. No pericardial effusion. Lymph nodes: No enlarged lymph nodes. Bones/joints: No acute fracture. Soft tissues: Unremarkable. Other findings: Right chest port seen terminating at the cavoatrial junction. CT/CT angio chest PE protcl [id number] IMPRESSION: 1. Negative for pulmonary embolism. 2. Nodular opacities with surrounding ground-glass attenuation in the posterior right upper lobe which could reflect small airway infectious or inflammatory process.
--- NOTE | 2023-09-18 08:18 | PC.PHAR ---
PT UNABLE TO VERIFY MEDICATIONS DUE TO AMS- MEDICATIONS VERIFIED USING EXTERNAL MED LIST LAST FILLED
[2023-09-18] MEDS: dexmedeTOMIDine 0.9 % NaCL 400 MCG/100 ML PREMIX 16.1700000000000017 MCG IV (08:30)
[2023-09-18] MEDS: metoprolol tartrate 50 mg Tablet PO ×2 (12:08→23:01)
[2023-09-18] MEDS: dextrose 5%-sod chloride 0.9% 1,000 ML 100 ML IV ×2 (12:08→19:47)
[2023-09-18] MEDS: iohexol 350 mg/mL 500 mL Btl (per mL) IV (14:12)
--- NOTE | 2023-09-18 16:41 | P.PN_ITS ---
Subjective 2 Subjective: 33-year-old with past medical history of glioma status postcraniotomy SVT tachycardia induced cardiomyopathy with an EF of 45% as well as psychosis paranoia. She was just discharged from our [facility] yesterday. Apparently patient had a long stay at [facility] where reports of drug abuse arose. It sounds like the patient is having difficulty at home and there is a fair amount of caregiver stress. Family reports seizure however patient was not postictal doubt epileptic seizure. Patient remains altered unable to give history Vitals/I&O/Wt Last Vital Signs Temp 100.0 F H 09/18/23 04:00 Pulse 88 09/18/23 16:00 Resp 24 H 09/18/23 16:00 BP 123/87 09/18/23 16:00 Pulse Ox 93 09/18/23 12:00 O2 Del Method Room Air 09/18/23 04:00 09/18/23 09/18/23 09/18/23 06:59 14:59 22:59 Intake Total 100.219 / 8960.940 7067.066 / 1051.066 Output Total 1375 / 1375 Balance -1274.781 / -505.520 4928.066 / 1051.066 Weight last 48 hrs Weight 80.195 kg Weight 80.83 kg Physical Exam 2 Narrative: Appears older than her stated age of 33. Delirious Heart tachycardic normal S1-S2 without murmurs Lungs clear to auscultation anteriorly Abdomen obese soft nontender nondistended positive bowel sounds Extremities nonpitting edema present Urinary Catheter Management: Cornell: Cath Placed During This Visit: yes Reason for Continuing Indwelling Catheter: Accurate Measurement of Urinary Output in Critically Ill Patients Urinary Catheter Date of Insertion: 09/18/23 Urinary Catheter Time of Insertion: 00:05 Data 09/18/23 03:49 09/18/23 03:49 A&P Assessment and plan (1) Acute encephalopathy: Multifactorial with an extensive psychiatric and drug history (2) Abnormal CT scan, chest: No pulmonary embolus Possible infiltrate in right upper lobe Will treat with IV antibiotics (3) Sinus tachycardia: (4) History of glioma: (5) Violent behavior: (6) Agitation: (7) Heart failure with reduced ejection fraction: (8) Diastolic heart failure: Qualifiers: Heart failure chronicity: chronic Qualified Code(s): I50.32 - Chronic diastolic (congestive) heart failure (9) Parent-child relational problem: (10) Partner relational problem: (11) Anxiety disorder: (12) 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 Psychiatry consult tomorrow Patient was reportedly stable yesterday with no psychiatric or medical issues. Concerned with whether patient took an unknown drug questionable withdrawal Attestations 2 Medical Necessity Statement*: Patient quires hospitalization greater than 2 midnights for workup and treatment of encephalopathy. Coding Level of Care Code Acute Code for [facility] Fwd Diagnoses Acute encephalopathy G93.[address] scan, chest R93.89 Sinus tachycardia R00.0 History of glioma Z85.841 Violent behavior R45.6 Agitation R45.1 Heart failure with reduced ejection fraction I50.20 Chronic diastolic heart failure I50.32 Heart failure chronicity: chronic Parent-child relational problem Z62.820 Partner relational problem Z63.0 Anxiety disorder F41.9 Cluster B personality disorder in adult F60.9 SVT (supraventricular tachycardia) I47.10
[2023-09-18] MEDS: valproic acid inj 500 MG in sodium chloride 0.9% 50 ML 55 MG IV (17:31)
[2023-09-18] MEDS: levofloxacin-dextrose 5 % 500 MG/100 ML PREMIX 100 MG IV (17:32)
[2023-09-18] MEDS: acetaminophen 325 mg Tablet 650 MG PO (19:46)
[2023-09-19] VITALS (15 sets, daily range): BP systolic 90–138; BP diastolic 53–86; PULSE 75–99; RESP 14–22; TEMP 36.2–37.6; O2SAT 94–99; BMI 247.9
[2023-09-19] MEDS: valproic acid inj 500 MG in sodium chloride 0.9% 50 ML 55 MG IV (00:54)
[2023-09-19 03:01] LABS: Basophils % 0.3 %; Eosinophils % 0.1 %; Hematocrit 28.4 % (36-47); Lymphocytes # 1.1 10^3/uL (0.8-4.8); Lymphocytes % 15.6 %; Mean Corpuscular HGB Conc 31.7 g/dL (30-55); Mean Corpuscular Hemoglobin 32.8 pg (27-33); Mean Corpuscular Volume 103.6 fl (85-98); Mean Platelet Volume 9.3 fL (7.4-10.4); Monocytes # 1.2 10^3/uL (0.2-0.9); Monocytes % 17.4 %; Neutrophils # 4.48 10^3/uL (1.8-7.7); Neutrophils % 64.6 %; Nucleated Red Blood Cells % 0 %; Platelet Count 98 10^3/cmm (157-399); Red Blood Count 2.74 10^6/uL (3.85-5.65); Red Cell Distribution Width 15.8 % (12.1-15.1); White Blood Count 6.94 10^3/uL (3.29-11.43)
[2023-09-19] MEDS: acetaminophen 325 mg Tablet 650 MG PO ×2 (03:03→20:17)
[2023-09-19] MEDS: LORazepam 2 mg/mL INJ 10 mL MDV 1 MG IVP (03:19)
[2023-09-19 03:27] LABS: Alanine Aminotransferase 8 U/L (0-33); Albumin Level 2.7 g/dL (3.5-5.2); Alkaline Phosphatase 93 U/L (35-105); Anion Gap 11.3 (5-19); Aspartate Amino Transferase 15 U/L (0-32); Blood Urea Nitrogen 4 mg/dL (6-20); C Reactive Protein 19.1 mg/L (0.0-4.9); Calcium 8.2 mg/dL (8.5-10.5); Carbon Dioxide 25 mmol/L (22-29); Chloride 111 mmol/L (98-107); Glucose 99 mg/dL (65-115); Magnesium 1.9 mg/dL (1.7-2.3); Osmolality Calculated 295 mOsm/kg (285-295); Phosphorus 3.2 mg/dL (2.5-4.5); Potassium 3.3 mmol/L (3.5-5.1); Sodium 144 mmol/L (136-145); Total Bilirubin 0.2 mg/dL (0.15-1.2); Total Protein 4.7 g/dL (6.6-8.7)
[2023-09-19] MEDS: morphine 4 mg/mL SDV 1 mL 2 MG IVP (04:16)
[2023-09-19 07:38] LABS: Ferritin 278 ng/mL (15-150); Iron 49 ug/dL (37-145); Percent Saturation 28.3 % (20-50); Total Iron Binding Capacity 173 mcg/dl; Unsaturated Iron Binding 124 ug/dL (112-347)
--- NOTE | 2023-09-19 07:49 | PC.NURSE ---
Dr. Gilman gave verbal orders to discontinue fluids and change diet to GI Soft
[2023-09-19 07:52] LABS: Vitamin B12 951 pg/mL (232-1245)
[2023-09-19 07:53] LABS: Folate Level 4.2 ng/mL (4.8-37.3)
[2023-09-19] MEDS: potassium chloride ER 20 mEq Tablet 40 MEQ PO (08:00)
--- NOTE | 2023-09-19 08:55 | PC.NURSE ---
Called report to Jacqueline Nunn RN NPU
[2023-09-19] MEDS: pantoprazole DR 40 mg Tablet PO (11:59)
[2023-09-19] MEDS: ferrous sulfate EC 325 mg Tablet PO (11:59)
[2023-09-19] MEDS: metoprolol tartrate 50 mg Tablet PO (11:59)
[2023-09-19] MEDS: FUROsemide 20 mg Tablet PO (11:59)
--- NOTE | 2023-09-19 12:24 | P.PN_ITS ---
Subjective 2 Subjective: Patient was seen this morning, alert oriented x 3, following all commands, denies any fevers, chills, cough denies any suicidal ideation, no homicidal ideation, no recurrent seizure-like episodes, she has a UTI, Levaquin, discussed with Dr. Norris, will moved n.p.o. switch to p.o. medications, will remove Cornell catheter stop IV fluids, patient is agreeable Vitals/I&O/Wt Last Vital Signs Temp 98.1 F 09/19/23 09:34 Pulse 95 09/19/23 09:34 Resp 17 09/19/23 09:34 BP 120/85 09/19/23 09:34 Pulse Ox 99 09/19/23 09:34 O2 Del Method Room Air 09/19/23 09:38 09/18/23 09/19/23 09/19/23 22:59 06:59 14:59 Intake Total 1060 / 2111.066 535 / 2646.066 118 / 118 Output Total 950 / 950 850 / 1800 300 / 300 Balance 110 / 1161.066 -315 / 846.066 -182 / -182 Weight last 48 hrs Weight 655.441 kg Weight 82.554 kg Weight 80.195 kg Weight 80.83 kg Physical Exam 2 Const: COMMON NORMALS: no acute distress and patient oriented x3 Resp: COMMON NORMALS: normal respiratory effort, No retractions, No use of accessory muscles and clear to auscultation bilaterally AUSCULTATION: clear to auscultation bilaterally Cardio: COMMON NORMALS: regular rate, regular rhythm, S1 normal heart sound present and S2 normal heart sound present RATE: regular rate RHYTHM: r egular rhythm HEART SOUNDS: S1 normal heart sound present and S2 normal heart sound present GI: COMMON NORMALS: Normal to inspection, nondistended, normoactive bowel sounds present and non-tender Extremity: COMMON NORMALS: no pedal edema Neuro: COMMON NORMALS: patient oriented x3 Psych: COMMON NORMALS: mental status grossly normal Urinary Catheter Management: Cornell: Cath Placed During This Visit: yes, but has since been removed by the nurse Reason for Continuing Indwelling Catheter: Decision to DC Catheter Urinary Catheter Date of Insertion: 09/18/23 Urinary Catheter Time of Insertion: 00:05 Date Urinary Catheter Removed: 09/19/23 Time Urinary Catheter Discontinued: 07:35 Data 09/19/23 02:40 09/19/23 02:40 Micro: Microbiology 09/18/23 00:05 Urine Culture - Preliminary Urine,Clean Catch A&P Assessment and plan (1) Acute encephalopathy: Multifactorial with an extensive psychiatric and drug history (2) Abnormal CT scan, chest: No pulmonary embolus Possible infiltrate in right upper lobe On Levaquin (3) Sinus tachycardia: (4) History of glioma: (5) Violent behavior: (6) Agitation: (7) Heart failure with reduced ejection fraction: (8) Diastolic heart failure: Qualifiers: Heart failure chronicity: chronic Qualified Code(s): I50.32 - Chronic diastolic (congestive) heart failure (9) Parent-child relational problem: (10) Partner relational problem: (11) Anxiety disorder: (12) 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 Plan on having patient follow-up with oncology as outpatient as there is plans on chemotherapy at some point ? Spoke to patient, spoke to nursing staff, spoke to Dr. Ovalle Attestations 2 Medical Necessity Statement*: Patient requires hospitalization for seizures, sinus tachycardia SVT, encephalopathy Diagnoses Acute encephalopathy G93.[address] scan, chest R93.89 Sinus tachycardia R00.0 History of glioma Z85.841 Violent behavior R45.6 Agitation R45.1 Heart failure with reduced ejection fraction I50.20 Chronic diastolic heart failure I50.32 Heart failure chronicity: chronic Parent-child relational problem Z62.820 Partner relational problem Z63.0 Anxiety disorder F41.9 Cluster B personality disorder in adult F60.9 SVT (supraventricular tachycardia) I47.10
--- NOTE | 2023-09-19 17:15 | P.NPUHP_ITS ---
Providers/Chief Complaint 2 Admitting Physician: Lasha Gilman MD Chief Complaint: MHE HPI NPU History of Present Illness Piedad Ramirez is a 33 year old female recently discharged from the neuropsychiatric unit on 09/17/2023 who presented again to [facility] with an apparent seizure-like episode, increased agitation, and encephalopathy in less than 24 hours. Patient had been admitted to the intensive care unit and was transferred to the neuropsychiatric unit for further evaluation and treatment after stabilization. She has a past history of a glioma status postcraniotomy, and had on certain history of a seizure disorder with reports of having episodes at home where patient would become extremely agitated and engage in apparent violent outburst with accompanied confusion. The patient had reported that she had been hospitalized for several weeks at [facility] for an extended evaluation in August 2023 with no new findings noted. Patient prior to discharge here had her records revealed that some of her behaviors were able to be controlled and that she had been stressed by her current medical situation and had been unable to manage her moods. Today, the patient is endorsing a desire to return back to her parents home where she lives and states that she is not currently having any problems with her medications as she states that she has been feeling better. She notes no substantiative changes since her discharge 2 days ago from the neuropsychiatric unit. The discharge summary was reviewed and the patient did appear to have some changes in her psychiatric medications including the discontinuation of Depakote and a reduction in her Zyprexa to 10 mg at night. Excerpt from Discharge Summary from NPU on 09/17/23. History of Present Illness Piedad Ramirez is a 33 year old female who presented to the emergency department with the following report: Chief Complaint: Psychiatric Symptoms Stated Complaint: 96 hr hold Time Seen by Provider: 09/12/23 10:08 Source: patient and EMS Mode of arrival: EMS Limitations: no limitations History of Present Illness: Patient is a 33-year-old female presents to ED today via EMS after her mother called an ambulance for evaluation of hallucinations and concerning behaviors. Patient's mother is her legal guardian and power of real estate associate attorney. Mother states she has been hallucinating at home. She states she has been up all night for several days doing bizarre things. Mother has found her in the kitchen holding a knife asking where the dog is so she could stab it. Patient was recently admitted to [facility] in [place] for a month-mother states symptoms initially started while she was in the hospital. She has a known brain tumor/oligodendroglioma. She was told her behaviors were not secondary to tumor and has diagnosed her with attention seeking behaviors and multiple personality disorder. Had multiple other medical speciality consults while in patient. Patient tells me she is fine and wants to go home. Affidavit from the mother states that she is having confusion, delirium, and hallucinations. She has been physically aggressive to her siblings. She has gotten naked and jumped on her siblings bed in the middle of the night, scaring them. She has tried to elope during the night. She has been awaking her siblings in the middle of the night telling them its time for school. She has tried to jump out of the car and reportedly is not concerned with oncoming traffic. Father states she picks up the vacuum and has imaginary conversations with that as if it were a telephone. She reportedly talks to imaginary characters. She puts aluminum foil in the microwave and turns it on. Onset (ago): day(s) History of same: Yes Relieving factors: none Exacerbating factors: none Associated symptoms: Reports auditory hallucinations (per guardian) and visual hallucinations (per guardian); Deny depression, homicidal ideation or suicidal ideation Treatments prior to arrival: placed on mental health hold (parents filing affidavits at [facility] currently ). She was admitted to the neuropsychiatric unit for definitive treatment of those issues. She presents today as a limited historian initially seeming to be too tired for the interview and unable to get herself alert. However when this loan underwriter stood up and suggested that we could just speak another time she was able to become interactive. She spent most of the time reporting that her parents were the challenge and that they blame everything on me. She focused on them not liking her last fianc? and the problems that that caused but seem to have progressed past the fact that if they were not being helpful she and her fianc? would have had no place to stay and then when they did have their own place to stay there were concerns about alcohol use and whether or not they were providing a safe place for her 4 children. She could not really explain what is been going on recently with these bizarre behaviors. We discussed that she has had multiple consultations that have ruled out the likelihood that this is a sequela of her glioma. She confirmed as her mother discussed that she is never really been independently functional without one of her baby's father's assisting her or her parents assisting her with limited employment and no long periods of interpersonal success. When the conversation turned towards the psychosocial challenges including the recent break-up with her most recent fianc? having a possible impact on her behavior pattern and that she may have recently acknowledges that reality to her mother she reported having abdominal issues and having to go to the restroom to prevent having an accident concluding the conversation as she stayed in the bathroom for some time. We had discussed prior to that a plan to review her medications and try to clean up any polypharmacy and start focusing on a plan for DBT or CBT as the follow-up plan. She most recently had been staying with her mother with her 4 children until her escalating behaviors led to such a disruption in their sleep and schooling that she was brought to the emergency department. Medications on discharge: trazodone 50 mg Tablet 50 mg PO BEDTIME PRN (Reason: Sleep) 30 Days Qty: 30 1RF hydroxyzine pamoate 25 mg Capsule 50 mg PO Q6H PRN (Reason: Anxiety) 30 Days Qty: 120 1RF Continued ondansetron HCl 4 mg tablet 4 mg PO BID PRN (Reason: Nausea And Vomiting) olanzapine 10 mg tablet 10 mg PO BEDTIME potassium chloride 20 mEq tablet,ER particles/crystals 40 meq PO DAILY pantoprazole 40 mg tablet,delayed release (DR/EC) 40 mg PO DAILY FeroSul 325 mg (65 mg iron) tablet 325 mg PO DAILY promethazine 25 mg tablet 25 mg PO Q6H PRN (Reason: Nausea And Vomiting) furosemide 20 mg tablet 20 mg PO DAILY Jardiance 10 mg tablet 10 mg PO QAM naloxone [Narcan] 4 mg/actuation spray,non-aerosol See Rx Instructions .ROUTE .COMPLEX Rx Instructions: intranasally ;CALL 911 ADMINISTER A SINGLE SPRAY OF NARCAN IN ONE NOSTRIL REPEAT EVERY 2 TO 3 MINUTES NEEDED IF NO OR MINIMAL RESPONSE Valtoco 5 mg/spray (0.1 mL) spray,non-aerosol See Rx Instructions .ROUTE .COMPLEX Rx Instructions: 5 mg intranasally ;ADMINISTER ONE SPARY IN LEFT NOSTRIL ONE TIME NEEDED Changed olanzapine 5 mg tablet,disintegrating 5 mg PO DAILY PRN (Reason: Agitation) 30 Days Qty: 0 0RF oxycodone 15 mg tablet 15 mg PO Q8H PRN (Reason: Pain) 30 Days Qty: 0 0RF Discontinued metoprolol tartrate 100 mg tablet 100 mg PO BID divalproex 500 mg tablet,delayed release (DR/EC) 500 mg PO BID olanzapine 7.5 mg tablet 7.5 mg PO QAM morphine 15 mg tablet extended release 15 mg PO BID Rx Instructions: MAX OF 7 DAYS lorazepam 1 mg tablet 1 mg PO Q6H PRN (Reason: Anxiety) Meds NPU Home Medications Medication Instructions Recorded Confirmed Last Taken Type diazepam 5 mg/spray (0.1 mL) nasal See Rx Instructions .Route .COMPLEX 09/12/23 09/18/23 Unknown History spray (Valtoco) ferrous sulfate 325 mg (65 mg 325 mg PO DAILY 09/12/23 09/18/23 Unknown History iron) tablet (FeroSul) furosemide 20 mg tablet 20 mg PO DAILY 09/12/23 09/18/23 Unknown History naloxone 4 mg/actuation nasal See Rx Instructions .Route .COMPLEX 09/12/23 09/18/23 Unknown History spray (Narcan) olanzapine 10 mg tablet 10 mg PO BEDTIME 09/12/23 09/18/23 Unknown History ondansetron HCl 4 mg tablet 4 mg PO BID PRN Nausea And Vomiting 09/12/23 09/18/23 Unknown History pantoprazole 40 mg tablet,delayed 40 mg PO DAILY 09/12/23 09/18/23 Unknown History release potassium chloride 20 mEq 40 meq PO DAILY 09/12/23 09/18/23 Unknown History tablet,extended release(part/cryst) promethazine 25 mg tablet 25 mg PO Q6H PRN Nausea And 09/12/23 09/18/23 Unknown History Vomiting hydroxyzine pamoate 25 mg capsule 50 mg (2 x 25 mg) PO Q6H PRN 09/16/23 09/18/23 Unknown Rx Anxiety 30 days #120 caps trazodone 50 mg tablet 50 mg PO BEDTIME PRN Sleep 30 days 09/16/23 09/18/23 Unknown Rx #30 tabs blood pressure monitor (Blood #1 ea 09/17/23 09/18/23 Unknown Rx Pressure Kit) metoprolol tartrate 25 mg tablet 25 mg PO BID PRN heart rate > 100 09/17/23 09/18/23 Unknown Rx 30 days #60 tabs olanzapine 5 mg disintegrating 5 mg PO DAILY PRN Agitation 30 09/17/23 09/18/23 Unknown Rx tablet days #0 tabs oxycodone 15 mg tablet 15 mg PO Q8H PRN Pain 30 days #0 09/17/23 09/18/23 Unknown Rx tabs divalproex 500 mg tablet,delayed 500 mg PO BID 09/18/23 09/18/23 Unknown History release empagliflozin 10 mg tablet 10 mg PO QAM 09/18/23 09/18/23 Unknown History (Jardiance) morphine 15 mg tablet,extended 15 mg PO Q12H 09/18/23 09/18/23 Unknown History release olanzapine 7.5 mg tablet 7.5 mg PO QAM 09/18/23 09/18/23 Unknown History Allergies Allergy/AdvReac Type Severity Reaction Status Date / Time latex Allergy Intermediate ADR-Itching Verified 09/18/23 08:18 Sulfa (Sulfonamide Allergy Intermediate ADR-Itching Verified 09/18/23 08:18 Antibiotics) sulfamethoxazole Allergy Intermediate ADR-Itching Verified 09/18/23 08:18 [From Bactrim] trimethoprim [From Bactrim] Allergy Intermediate ADR-Itching Verified 09/18/23 08:18 PFSH NPU 2 PFSH: Medical History (Updated 09/18/23 @ 16:48 by Sebastián Campoverde DO) SVT (supraventricular tachycardia) Acute psychosis History of paranoid disorder History of seizures History of cardiomyopathy History of paroxysmal supraventricular tachycardia History of glioma Surgical History (Updated 09/17/23 @ 23:54 by Lasha Gilman MD) History of craniotomy Social History (Updated 09/17/23 @ 23:54 by Lasha Gilman MD) Alcohol intake: never Substance/Drug Use: never Mental Status Exam 2 MSE Comments: This is an overweight versus obese white female in hospital scrubs with poor grooming and fleeting eye contact. No abnormal movements except for mild psychomotor slowing. She was superficially cooperative with exam in mild distress. Speech was more normal rate and volume. Mood described as a okay. affect was restricted and mood incogruent. Thought process appeared linear and organized. Thought content: patient denied suicidal or homicidal ideation, no delusions reported or noted, she denied auditory or visual hallucinations.? Attention and concentration were limited and memory was more reliable, but none were formally tested. She was alert and oriented x3. Insight is poor. Judgment is limited. Impulse control was poor. Vitals/I&O/Wt Last Vital Signs Temp 99.1 F 09/19/23 14:00 Pulse 75 09/19/23 14:00 Resp 16 09/19/23 14:00 BP 138/84 09/19/23 14:00 Pulse Ox 98 09/19/23 14:00 O2 Del Method Room Air 09/19/23 09:38 09/19/23 09/19/23 09/19/23 06:59 14:59 22:59 Intake Total 535 / 2646.066 118 / 118 Output Total 850 / 1800 300 / 300 Balance -315 / 846.066 -182 / -182 Weight last 48 hrs Weight 655.441 kg Weight 82.554 kg Weight 80.195 kg Weight 80.83 kg Physical Exam 2 Urinary Catheter Management: Cornell: Cath Placed During This Visit: yes, but has since been removed by the nurse Reason for Continuing Indwelling Catheter: Decision to DC Catheter Urinary Catheter Date of Insertion: 09/18/23 Urinary Catheter Time of Insertion: 00:05 Date Urinary Catheter Removed: 09/19/23 Time Urinary Catheter Discontinued: 07:35 Data NPU 09/19/23 02:40 09/19/23 02:40 Micro: Microbiology 09/18/23 00:05 Urine Culture - Preliminary Urine,Clean Catch Microbiology 09/18/23 00:05 Urine,Clean Catch Urine Culture - Preliminary A&P Assessment and plan (1) Acute psychosis: (2) Parent-child relational problem: (3) Partner relational problem: (4) Anxiety disorder: (5) Cluster B personality disorder in adult: Plan This is a 44 year old white female with a long history of mental health issues with recent significant medical comorbidities and a dramatic change in behavioral pattern with significant concerns for cluster B pathology. 1.? Will taper depakote and reduce to 250mg bid. Continue zyprexa at 10mg at night. Consider antidepressant? Some issue appears regarding patient ability to return back to mother's home. 2.? Encourage individual, group and milieu therapy 3.? Continue q-15 minute check for safety 4.? Recommend sober living treatment at the highest level of care to which the patient is willing to commit. Involuntary Hold Information 2 96 Hour Hold: 96 Hour Involuntary Admission: No Attestations NPU 2 Medical Necessity Statement*: Inpatient hospitalization is medically necessary and the clinically appropriate intervention at this time. We will monitor medications and make changes as indicated. Patient will be in the hospital for over two midnights. Likely length of stay is 2-3 days. Coding Level of Care Code Acute Code for g Fwd Diagnoses Acute psychosis F23 Parent-child relational problem Z62.820 Partner relational problem Z63.0 Anxiety disorder F41.9 Cluster B personality disorder in adult F60.9
[2023-09-19] MEDS: levoFLOXacin 500 mg Tablet PO (17:25)
[2023-09-19] MEDS: folic acid 1 mg Tablet PO (17:25)
[2023-09-19] MEDS: OLANZapine 10 mg TABLET PO (20:13)
[2023-09-19] MEDS: trazodone 50 mg Tablet PO (20:13)
--- NOTE | 2023-09-20 01:10 | PC.NURSE ---
Pts 2330 Metoprolol was held due to Pts blood pressure being 93/57.
[2023-09-20 06:00] VITALS: BP 122/82; PULSE 94; RESP 17; TEMP 36.8; O2SAT 96
[2023-09-20] MEDS: ferrous sulfate EC 325 mg Tablet PO (08:14)
[2023-09-20] MEDS: FUROsemide 20 mg Tablet PO (08:14)
[2023-09-20] MEDS: folic acid 1 mg Tablet PO (08:14)
[2023-09-20] MEDS: pantoprazole DR 40 mg Tablet PO (08:14)
[2023-09-20 08:20] LABS: Basophils % 0.6 %; Eosinophils # 0.1 10^3/uL (0.0-0.8); Hematocrit 34.1 % (36-47); Lymphocytes # 0.7 10^3/uL (0.8-4.8); Lymphocytes % 12.4 %; Mean Corpuscular HGB Conc 31.4 g/dL (30-55); Mean Corpuscular Hemoglobin 31.9 pg (27-33); Mean Corpuscular Volume 101.8 fl (85-98); Mean Platelet Volume 9.1 fL (7.4-10.4); Monocytes # 0.8 10^3/uL (0.2-0.9); Monocytes % 14.8 %; Neutrophils # 3.64 10^3/uL (1.8-7.7); Neutrophils % 69.1 %; Nucleated Red Blood Cells % 0 %; Platelet Count 152 10^3/cmm (157-399); Red Blood Count 3.35 10^6/uL (3.85-5.65); Red Cell Distribution Width 14.9 % (12.1-15.1); White Blood Count 5.26 10^3/uL (3.29-11.43)
[2023-09-20 08:33] LABS: Alanine Aminotransferase 10 U/L (0-33); Albumin Level 2.9 g/dL (3.5-5.2); Alkaline Phosphatase 122 U/L (35-105); Aspartate Amino Transferase 18 U/L (0-32); Blood Urea Nitrogen 5 mg/dL (6-20); Carbon Dioxide 27 mmol/L (22-29); Chloride 105 mmol/L (98-107); Globulin 2.7 g/dL (1.3-4.6); Glucose 97 mg/dL (65-115); Magnesium 1.8 mg/dL (1.7-2.3); Osmolality Calculated 287 mOsm/kg (285-295); Phosphorus 4.5 mg/dL (2.5-4.5); Sodium 140 mmol/L (136-145); Total Bilirubin 0.2 mg/dL (0.15-1.2); Total Protein 5.6 g/dL (6.6-8.7)
--- NOTE | 2023-09-20 09:22 | PC.NURSE ---
During morning shift assessment, patient calm and cooperative. Patient denies SI, HI, AVH, depression, and anxiety. Patient denies any needs.
[2023-09-20] MEDS: metoprolol tartrate 50 mg Tablet PO (11:14)
[2023-09-20] MEDS: nicotine 4 mg lozenge MUCOUS MEM (11:14)
[2023-09-20] MEDS: ibuprofen 600 mg Tablet PO (11:42)
[2023-09-20 14:00] VITALS: BP 115/79; PULSE 73; RESP 20; TEMP 37.1; O2SAT 100
--- NOTE | 2023-09-20 14:04 | W.PM.NPUDCS ---
Diagnoses at Discharge Discharge Diagnosis (1) Anxiety disorder: Status: Acute (2) Parent-child relational problem: Status: Acute (3) Partner relational problem: Status: Acute (4) Cluster B personality disorder in adult: Status: Acute Reason for Visit Reason for Visit: MHE Brief History: History of Present Illness Piedad Ramirez is a 33 year old female recently discharged from the neuropsychiatric unit on 09/17/2023 who presented again to [facility] with an apparent seizure-like episode, increased agitation, and encephalopathy in less than 24 hours. Patient had been admitted to the intensive care unit and was transferred to the neuropsychiatric unit for further evaluation and treatment after stabilization. She has a past history of a glioma status postcraniotomy, and had on certain history of a seizure disorder with reports of having episodes at home where patient would become extremely agitated and engage in apparent violent outburst with accompanied confusion. The patient had reported that she had been hospitalized for several weeks at [facility] for an extended evaluation in August 2023 with no new findings noted. Patient prior to discharge here had her records revealed that some of her behaviors were able to be controlled and that she had been stressed by her current medical situation and had been unable to manage her moods. Today, the patient is endorsing a desire to return back to her parents home where she lives and states that she is not currently having any problems with her medications as she states that she has been feeling better. She notes no substantiative changes since her discharge 2 days ago from the neuropsychiatric unit. The discharge summary was reviewed and the patient did appear to have some changes in her psychiatric medications including the discontinuation of Depakote and a reduction in her Zyprexa to 10 mg at night. Excerpt from Discharge Summary from NPU on 09/17/23. History of Present Illness Piedad Ramirez is a 33 year old female who presented to the emergency department with the following report: Chief Complaint: Psychiatric Symptoms Stated Complaint: 96 hr hold Time Seen by Provider: 09/12/23 10:08 Source: patient and EMS Mode of arrival: EMS Limitations: no limitations History of Present Illness: Patient is a 33-year-old female presents to ED today via EMS after her mother called an ambulance for evaluation of hallucinations and concerning behaviors. Patient's mother is her legal guardian and power of immigration attorney. Mother states she has been hallucinating at home. She states she has been up all night for several days doing bizarre things. Mother has found her in the kitchen holding a knife asking where the dog is so she could stab it. Patient was recently admitted to [facility] in [place] for a month-mother states symptoms initially started while she was in the hospital. She has a known brain tumor/oligodendroglioma. She was told her behaviors were not secondary to tumor and has diagnosed her with attention seeking behaviors and multiple personality disorder. Had multiple other medical speciality consults while in patient. Patient tells me she is fine and wants to go home. Affidavit from the mother states that she is having confusion, delirium, and hallucinations. She has been physically aggressive to her siblings. She has gotten naked and jumped on her siblings bed in the middle of the night, scaring them. She has tried to elope during the night. She has been awaking her siblings in the middle of the night telling them its time for school. She has tried to jump out of the car and reportedly is not concerned with oncoming traffic. Father states she picks up the vacuum and has imaginary conversations with that as if it were a telephone. She reportedly talks to imaginary characters. She puts aluminum foil in the microwave and turns it on. Onset (ago): day(s) History of same: Yes Relieving factors: none Exacerbating factors: none Associated symptoms: Reports auditory hallucinations (per guardian) and visual hallucinations (per guardian); Deny depression, homicidal ideation or suicidal ideation Treatments prior to arrival: placed on mental health hold (parents filing affidavits at [facility] currently ). She was admitted to the neuropsychiatric unit for definitive treatment of those issues. She presents today as a limited historian initially seeming to be too tired for the interview and unable to get herself alert. However when this lyric writer stood up and suggested that we could just speak another time she was able to become interactive. She spent most of the time reporting that her parents were the challenge and that they blame everything on me. She focused on them not liking her last fianc? and the problems that that caused but seem to have progressed past the fact that if they were not being helpful she and her fianc? would have had no place to stay and then when they did have their own place to stay there were concerns about alcohol use and whether or not they were providing a safe place for her 4 children. She could not really explain what is been going on recently with these bizarre behaviors. We discussed that she has had multiple consultations that have ruled out the likelihood that this is a sequela of her glioma. She confirmed as her mother discussed that she is never really been independently functional without one of her baby's father's assisting her or her parents assisting her with limited employment and no long periods of interpersonal success. When the conversation turned towards the psychosocial challenges including the recent break-up with her most recent fianc? having a possible impact on her behavior pattern and that she may have recently acknowledges that reality to her mother she reported having abdominal issues and having to go to the restroom to prevent having an accident concluding the conversation as she stayed in the bathroom for some time. We had discussed prior to that a plan to review her medications and try to clean up any polypharmacy and start focusing on a plan for DBT or CBT as the follow-up plan. She most recently had been staying with her mother with her 4 children until her escalating behaviors led to such a disruption in their sleep and schooling that she was brought to the emergency department. Medications on discharge: trazodone 50 mg Tablet 50 mg PO BEDTIME PRN (Reason: Sleep) 30 Days Qty: 30 1RF hydroxyzine pamoate 25 mg Capsule 50 mg PO Q6H PRN (Reason: Anxiety) 30 Days Qty: 120 1RF Continued ondansetron HCl 4 mg tablet 4 mg PO BID PRN (Reason: Nausea And Vomiting) olanzapine 10 mg tablet 10 mg PO BEDTIME potassium chloride 20 mEq tablet,ER particles/crystals 40 meq PO DAILY pantoprazole 40 mg tablet,delayed release (DR/EC) 40 mg PO DAILY FeroSul 325 mg (65 mg iron) tablet 325 mg PO DAILY promethazine 25 mg tablet 25 mg PO Q6H PRN (Reason: Nausea And Vomiting) furosemide 20 mg tablet 20 mg PO DAILY Jardiance 10 mg tablet 10 mg PO QAM naloxone [Narcan] 4 mg/actuation spray,non-aerosol See Rx Instructions .ROUTE .COMPLEX Rx Instructions: intranasally ;CALL 911 ADMINISTER A SINGLE SPRAY OF NARCAN IN ONE NOSTRIL REPEAT EVERY 2 TO 3 MINUTES NEEDED IF NO OR MINIMAL RESPONSE Valtoco 5 mg/spray (0.1 mL) spray,non-aerosol See Rx Instructions .ROUTE .COMPLEX Rx Instructions: 5 mg intranasally ;ADMINISTER ONE SPARY IN LEFT NOSTRIL ONE TIME NEEDED Changed olanzapine 5 mg tablet,disintegrating 5 mg PO DAILY PRN (Reason: Agitation) 30 Days Qty: 0 0RF oxycodone 15 mg tablet 15 mg PO Q8H PRN (Reason: Pain) 30 Days Qty: 0 0RF Discontinued metoprolol tartrate 100 mg tablet 100 mg PO BID divalproex 500 mg tablet,delayed release (DR/EC) 500 mg PO BID olanzapine 7.5 mg tablet 7.5 mg PO QAM morphine 15 mg tablet extended release 15 mg PO BID Rx Instructions: MAX OF 7 DAYS lorazepam 1 mg tablet 1 mg PO Q6H PRN (Reason: Anxiety) Hospital Course Hospital Course Hospital Course The patient was transferred from the intensive care unit after the apparent seizure. She had been placed on Levaquin for treatment of an infection. She was evaluated for 2 nights on the psychiatric unit with no significant incident. She had complained of having issues with anxiety but denied any depression. She had reported having chronic problems with managing anxiety and was amenable to consideration for the use of Lexapro to target anxiety and this was initiated prior to her discharge. The patient had been agreeable to a simplification of her medications as per her previous discharge less than a week ago. Depakote was discontinued and Zyprexa was reduced to 10 mg at night only with no problems reported with the patient. The patient was agreeable to consideration for outpatient follow-up with a psychiatrist as it had been scheduled previously. Patient had discussed restarting Klonopin but it was ultimately decided that this would not be initiated as she had remained on opiates for pain management and it was not recommended that benzodiazepines and opiates be used together on a routine basis.During the hospitalization, the patient had routine laboratory studies which were within normal limits except for a few outliers.? Additionally, there was a general medical evaluation which was also within normal limits and revealed no new acute processes.? At the time of discharge, mood and anxiety were well managed.? The patient endorsed a plan to avoid all drugs of abuse and follow up with the aftercare recommendations of the treatment team.? The patient was evaluated and deemed to be absent credible lethality and had achieved the maximum benefit from an inpatient hospitalization, and so was discharged. ? Involuntary Hold Information 96 Hour Hold: 96 Hour Involuntary Admission: No Mental Status Exam MSE Comments: This is an overweight versus obese white female in hospital scrubs with poor grooming and fleeting eye contact. No abnormal movements except for mild psychomotor slowing. She was pleasant and cooperative with exam in no acute distress. Speech was normal in rate, rhythm and volume. Mood described as a good. affect was mildly restricted. Thought process appeared linear and organized. Thought content: patient denied suicidal or homicidal ideation, no delusions reported or noted, she denied auditory or visual hallucinations.? Attention and concentration were limited and memory was more reliable, but none were formally tested. She was alert and oriented x3. Insight is limited. Judgment is adequate. Impulse control was fair. Physical Exam Urinary Catheter Management: Cornell: Cath Placed During This Visit: yes, but has since been removed by the nurse Reason for Continuing Indwelling Catheter: Decision to DC Catheter Urinary Catheter Date of Insertion: 09/18/23 Urinary Catheter Time of Insertion: 00:05 Date Urinary Catheter Removed: 09/19/23 Time Urinary Catheter Discontinued: 07:35 Discharge Data Studies Completed and Pending: Completed Studies During Hospitalization Category Date Time Status CT angio chest PE protcl [id number] Rout ine Cat Scan 09/18/23 07:[address] head wo con* 7 0450 Stat Cat Scan 09/17/23 18:29 Completed Pending at discharge Category Date Time Status Complete Blood Co unt w/Auto AM LABS Lab 09/21/23 04:00 Ordered Comprehensive Met abolic Panel AM LA BS Lab 09/21/23 04:00 Ordered Magnesium AM LABS Lab 09/21/23 04:00 Ordered Occult Blood Stoo l [Immunochemical Fecal OCB] Routine Lab 09/19/23 06:44 Uncollected Phosphorus AM LAB S Lab 09/21/23 04:00 Ordered Radiology Impressions Head CT 09/17/23 18:29 IMPRESSION: No CT evidence of acute intracranial pathology. Chest CTA 09/18/23 07:01 IMPRESSION: 1. Negative for pulmonary embolism. 2. Nodular opacities with surrounding ground-glass attenuation in the posterior right upper lobe which could reflect small airway infectious or inflammatory process. Laboratory Results WBC 5.26 10^3/uL (3.2 9-11.43) 09/20/23 08:00 RBC 3.35 10^6/uL (3.8 5-5.65) L 09/20/23 08:00 Hgb 10.70 g/dL (11.27 -16.99) L 09/20/23 08:00 Hct 34.1 % (36-47) L 09/20/23 08:00 MCV 101.8 fl (85-98) H 09/20/23 08:00 MCH 31.9 pg (27-33) 09/20/23 08:00 MCHC 31.4 g/dL (30-55) 09/20/23 08:00 RDW 14.9 % (12.1-15.1 ) 09/20/23 08:00 Plt Count 152 10^3/cmm (157 -399) L D 09/20/23 08:00 MPV 9.1 fL (7.4-10.4) 09/20/23 08:00 Neut % (Auto) 69.1 % 09/20/23 08:00 Lymph % (Auto) 12.4 % 09/20/23 08:00 [place] % (Auto) 14.8 % 09/20/23 08:00 Eos % (Auto) 1.0 % 09/20/23 08:00 Baso % (Auto) 0.6 % 09/20/23 08:00 Neut # (Auto) 3.64 10^3/uL (1.8 -7.7) 09/20/23 08:00 Lymph # (Auto) 0.7 10^3/uL (0.8- 4.8) L 09/20/23 08:00 [place] # (Auto) 0.8 10^3/uL (0.2- 0.9) 09/20/23 08:00 Eos # (Auto) 0.1 10^3/uL (0.0- 0.8) 09/20/23 08:00 Baso # (Auto) 0.0 10^3/uL (0.0- 0.1) 09/20/23 08:00 Nucleated RBC % (a uto) 0 % 09/20/23 08:00 Nucleated RBCs # 0.0 /100WBC 09/20/23 08:00 ESR 16 mm/hr (0-15) H 09/17/23 18:21 D-Dimer 2.03 ug/mLFEU (0- 0.59) H 09/17/23 18:21 Sodium 140 mmol/L (136-1 45) 09/20/23 08:00 Potassium 4.0 mmol/L (3.5-5 .1) 09/20/23 08:00 Chloride 105 mmol/L (98-10 7) 09/20/23 08:00 Carbon Dioxide 27 mmol/L (22-29) 09/20/23 08:00 Anion Gap 12.0 (5-19) 09/20/23 08:00 BUN 5 mg/dL (6-20) L 09/20/23 08:00 Creatinine 0.4 mg/dL (0.5-0. 9) L 09/20/23 08:00 GFR Calculation 185.0 mL/min (90- 130) H 09/20/23 08:00 Glucose 97 mg/dL (65-115) 09/20/23 08:00 Calculated Osmolal ity 287 mOsm/kg (285- 295) 09/20/23 08:00 Lactic Acid 2.3 mmol/L (0.5-2 .2) H 09/18/23 00:00 Lactic Acid (Sepsi s) 1.2 mmol/L (0.5-2 .2) 09/18/23 03:49 Calcium 9.0 mg/dL (8.5-10 .5) 09/20/23 08:00 Phosphorus 4.5 mg/dL (2.5-4. 5) 09/20/23 08:00 Magnesium 1.8 mg/dL (1.7-2. 3) 09/20/23 08:00 Iron 49 ug/dL (37-145) 09/19/23 02:40 TIBC 173 mcg/dl 09/19/23 02:40 % Saturation 28.3 % (20-50) 09/19/23 02:40 Unsat Iron Binding 124 ug/dL (112-34 7) 09/19/23 02:40 Ferritin 278 ng/mL (15-150 ) H 09/19/23 02:40 Total Bilirubin 0.2 mg/dL (0.15-1 .2) 09/20/23 08:00 AST 18 U/L (0-32) 09/20/23 08:00 ALT 10 U/L (0-33) 09/20/23 08:00 Alkaline Phosphata se 122 U/L (35-105) H 09/20/23 08:00 Creatine Kinase 48 U/L (26-192) 09/17/23 18:21 Troponin T Baselin e 18 ng/L (0-10) H 09/17/23 22:19 Troponin T 120 Min blackfeet 16.40 ng/L (0-10) H 09/18/23 00:00 Delta Troponin T -1.60 ABS# (0-10) L 09/18/23 00:00 Troponin T Hi Sens 6Hr 13.46 ng/L (0-10) H 09/18/23 03:49 Troponin T Hi Sens 6Hr Delta -4.54 ng/L (0-12) L 09/18/23 03:49 C-Reactive Protein 19.1 mg/L (0.0-4. 9) H 09/19/23 02:40 NT-Pro-B Natriuret Pep 977 pg/mL (0-125) H 09/18/23 00:00 Total Protein 5.6 g/dL (6.6-8.7 ) L 09/20/23 08:00 Albumin 2.9 g/dL (3.5-5.2 ) L 09/20/23 08:00 Globulin 2.7 g/dL (1.3-4.6 ) 09/20/23 08:00 Vitamin B12 951 pg/mL (232-12 45) 09/19/23 02:40 Folate 4.2 ng/mL (4.8-37 .3) L 09/19/23 02:40 Procalcitonin 0.30 ng/mL (0-0.5 ) 09/19/23 02:40 Prolactin 24.99 ng/mL (4.8- 23.3) H 09/17/23 18:21 HCG, Qual Negative (Negati ve) 09/17/23 18:21 Urine Color Yellow (Yellow) 09/18/23 00:05 Urine Appearance Clear (CLEAR) 09/18/23 00:05 Urine pH 7 (5-7) 09/18/23 00:05 Ur Specific Gravit y 1.005 (1.005-1.0 30) 09/18/23 00:05 Urine Protein Neg (Negative) 09/18/23 00:05 Urine Glucose (UA) Norm (Normal) 09/18/23 00:05 Urine Ketones 1+ (Negative) H 09/18/23 00:05 Urine Blood 3+ (Negative) H 09/18/23 00:05 Urine Nitrate Negative (Negati ve) 09/18/23 00:05 Urine Bilirubin Neg (Negative) 09/18/23 00:05 Urine Urobilinogen Neg mg/dL (Negati ve) 09/18/23 00:05 Ur Leukocyte Anabel ase Negative (Negati ve) 09/18/23 00:05 Urine RBC 25-40 /hpf (0-2) H 09/18/23 00:05 Urine WBC 0-4 /hpf (0-5) H 09/18/23 00:05 Ur Squamous Epith Cells 0-4 /hpf (0-5) H 09/18/23 00:05 Amorphous Sediment Not Reportable 09/18/23 00:05 Urine Bacteria Trace /hpf (NONE) 09/18/23 00:05 Urine Mucus 1+ /hpf 09/18/23 00:05 Salicylates < 0.3 mg/dL (3-10 ) L 09/17/23 18:21 Urine Opiates Scre en Negative ng/mL (N egative) 09/18/23 00:05 Acetaminophen < 5.0 ug/mL (10-3 0) L 09/17/23 18:21 Ur Barbiturates Sc reen Negative ng/mL (N egative) 09/18/23 00:05 Ur Phencyclidine S crn Negative ng/mL (N egative) 09/18/23 00:05 Ur Amphetamines Sc reen Negative ng/mL (N egative) 09/18/23 00:05 U Benzodiazepines Scrn Positive ng/mL (N egative) H 09/18/23 00:05 Urine Cocaine Scre en Negative ng/mL (N egative) 09/18/23 00:05 U Marijuana (THC) Screen Negative ng/mL (N egative) 09/18/23 00:05 Ethyl Alcohol < 10 mg/dL (0-10) 09/17/23 18:21 Vitals: Last Vital Signs Temp 98.3 F 09/20/23 06:00 Pulse 94 09/20/23 06:00 Resp 17 09/20/23 06:00 BP 122/82 09/20/23 06:00 Pulse Ox 96 09/20/23 06:00 O2 Del Method Room Air 09/20/23 06:00 Discharge Plan Discharge Patient Disposition: Home Condition: Stable Prescriptions: New escitalopram oxalate 10 mg Tablet 10 mg PO DAILY 30 Days Qty: 30 1RF levofloxacin 500 mg Tablet 500 mg PO QPM 4 Days Qty: 4 0RF Rx Instructions: Take once at night for 4 days then discontinue Continued ondansetron HCl 4 mg tablet 4 mg PO BID PRN (Reason: Nausea And Vomiting) olanzapine 10 mg tablet 10 mg PO BEDTIME potassium chloride 20 mEq tablet,ER particles/crystals 40 meq PO DAILY pantoprazole 40 mg tablet,delayed release (DR/EC) 40 mg PO DAILY ferrous sulfate [FeroSul] 325 mg (65 mg iron) tablet 325 mg PO DAILY promethazine 25 mg tablet 25 mg PO Q6H PRN (Reason: Nausea And Vomiting) furosemide 20 mg tablet 20 mg PO DAILY naloxone [Narcan] 4 mg/actuation spray,non-aerosol See Rx Instructions .ROUTE .COMPLEX Rx Instructions: intranasally ;CALL 911 ADMINISTER A SINGLE SPRAY OF NARCAN IN ONE NOSTRIL REPEAT EVERY 2 TO 3 MINUTES NEEDED IF NO OR MINIMAL RESPONSE Valtoco 5 mg/spray (0.1 mL) spray,non-aerosol See Rx Instructions .ROUTE .COMPLEX Rx Instructions: 5 mg intranasally ;ADMINISTER ONE SPARY IN LEFT NOSTRIL ONE TIME NEEDED trazodone 50 mg Tablet 50 mg PO BEDTIME PRN (Reason: Sleep) 30 Days Qty: 30 1RF hydroxyzine pamoate 25 mg Capsule 50 mg PO Q6H PRN (Reason: Anxiety) 30 Days Qty: 120 1RF olanzapine 5 mg tablet,disintegrating 5 mg PO DAILY PRN (Reason: Agitation) 30 Days Qty: 0 0RF oxycodone 15 mg tablet 15 mg PO Q8H PRN (Reason: Pain) 30 Days Qty: 0 0RF metoprolol tartrate 25 mg tablet 25 mg PO BID PRN (Reason: heart rate > 100) 30 Days Qty: 60 0RF (DME) blood pressure monitor [Blood Pressure Kit] Kit See Rx Instructions .Route Qty: 1 0RF Rx Instructions: As directed morphine 15 mg tablet extended release 15 mg PO Q12H Jardiance 10 mg tablet 10 mg PO QAM Discontinued divalproex 500 mg tablet,delayed release (DR/EC) 500 mg PO BID olanzapine 7.5 mg tablet 7.5 mg PO QAM Discharge Orders: Discharge Order (Routine); Ordered 09/20/23 Ordered By: Nitesh Ovalle Referrals: [facility] [Other] - 09/23/23 9:00 am Cristal Gaming FNP [Referring] - Discharge Diet: Usual diet Discharge Activity: Resume usual activity Patient Instructions: Opioid Safety Discharge Attestations NPU Time Spent in Discharge Care*: less than 30 min Specific Discharge Activities: Specific discharge activities: educating patient, discussing with library science professor/social workers/dc planners and documenting/other paperwork Status at Discharge: Cognitive status at discharge: cognitively intact, Coding Level of Care Code Acute Code for [facility] Fwd Diagnoses Anxiety disorder F41.9 Parent-child relational problem Z62.820 Partner relational problem Z63.0 Cluster B personality disorder in adult F60.9
[2023-09-20] MEDS: escitalopram 10 mg Tablet PO (14:06)
[2023-09-20 16:26] VITALS: BP 115/79; PULSE 73; RESP 20; TEMP 37.1; O2SAT 100
== END 2023-09-20 17:48 | disposition home or self-care (01) | DRG 885 ==
LOC: ER 22:07 → ICU 22:25 → NP 09-19 13:41
PROVIDERS: Admitting Provider Family Medicine; Emergency Provider Emergency Medicine; Visit Provider Psychiatry & Neurology Psychiatry
DX: F23 Brief psychotic disorder (principal); C71.9 Malignant neoplasm of brain, unspecified; G93.40 Encephalopathy, unspecified; N39.0 Urinary tract infection, site not specified; I47.10 Supraventricular tachycardia, unspecified; I42.9 Cardiomyopathy, unspecified; I50.32 Chronic diastolic (congestive) heart failure; G40.909 Epilepsy, unspecified, not intractable, without status epilepticus; R45.1 Restlessness and agitation; R45.6 Violent behavior; F22 Delusional disorders; G89.29 Other chronic pain; E66.9 Obesity, unspecified; R91.8 Other nonspecific abnormal finding of lung field; Z63.0 Problems in relationship with spouse or partner; Z62.820 Parent-biological child conflict; F41.9 Anxiety disorder, unspecified; F60.89 Other specific personality disorders
CPT/HCPCS: 36415; 51702; 70450; 71275; 80053; 80306; 80307; 81001; 82550; 82607; 82728; 82746; 83540; 83550; 83605; 83735; 83880; 84100; 84145; 84146; 84484; 84703; 85025; 85378; 85651; 86140; 87086; 93005; 94664; 96372; 96374; 96375; 96376; 97150; 97165; 99285; C9113; J1100; J1630; J1650; J1956; J2060; J2270; J3475; J3486; J3490; J7030; J7042; Q9967

== ENCOUNTER 2024-02-14 08:59 | Outpatient (CLI) | payer BC, MEDICAID, SELFPAY ==
--- NOTE | 2024-02-14 09:15 | USCV_ITS ---
JamesPiedad banda Age: 33 Gender: F : 1990 Exam Date: 02/14/2024 09:11 Ordering Phys: Juan Tran MD ([email or web address]) Technologist: TRUDI Exam Location: [facility] [place] Indication: DX OF CHF. BRAIN CANCER WITH TREATMENT AND PORT BP: / HR: 63 Rhythm: Sinus Technical Quality: Adequate MEASUREMENTS (Male / Female) Normal Values 2D ECHO LV Diastolic Diameter PLAX 3.7 cm 4.2 - 5.9 / 3.9 - 5.3 cm IVS Diastolic Thickness 1.1 cm 0.6 - 1.0 / 0.6 - 0.9 cm IVS Systolic Thickness 1.4 cm LVPW Diastolic Thickness 1.4 cm 0.6 - 1.0 / 0.6 - 0.9 cm LVPW Systolic Thickness 1.4 cm LVOT Diameter 2.0 cm LV Ejection Fraction 2D Teich 46.1 % LV Ejection Fraction MOD 4C 54.8 % LV Ejection Fraction MOD 2C 59.7 % LV Ejection Fraction 2C AL 59.8 % LA Diameter 2.5 cm RA Systolic Volume 4C AL 16.6 ml RA Systolic Volume 4C MOD 15.8 ml LA Sys Volume AL 25.7 cm cubed LA Sys Volume Index AL 14.9 cm cubed/m squared Aorta at Sinotubular Diameter 2.8 cm IVC Diameter 1.4 cm M-MODE LA Ao Ratio MM 1.3 AV Cusp Separation MM 1.9 cm DOPPLER AV Peak Velocity 122.0 cm/s LVOT Peak Velocity 105.0 cm/s AV Area Cont Eq vti 2.7 cm squared AV Area Cont Eq pk 2.7 cm squared MV Area PHT 3.6 cm squared Mitral E to A Ratio 1.2 TV Peak Velocity 101.5 cm/s TR Peak Velocity 108.0 cm/s TR Peak Gradient 4.7 mmHg TR Mean Velocity 77.0 cm/s TR Mean Gradient 2.7 mmHg TR Velocity Time Integral 27.1 cm TV Peak E Velocity 69.0 cm/s PV Peak Velocity 90.0 cm/s FINDINGS Left Ventricle Normal left ventricular size and systolic function, EF of 57%.no regional wall motion abnormalities. Right Ventricle The right ventricle is normal in size and function. Right Atrium The right atrium is normal in size. Left Atrium The left atrium is normal in size. Mitral Valve Trace mitral valve regurgitation. Aortic Valve No gross abnormalities noted Tricuspid Valve Trace tricuspid valve regurgitation. Pulmonic Valve No gross abnormalities noted Pericardium Normal pericardium without effusion. Aorta Normal ascending aorta dimension. IVC Normal inferior vena cava. CONCLUSIONS Normal left ventricular size and systolic function, EF of 57%. No regional wall motion abnormalities. Trace mitral valve regurgitation. Trace tricuspid valve regurgitation. Normal cardiac chamber sizes. There is no pericardial effusion. There are no intracardiac masses. No similar previous studies are available for comparison Dr Shefali Aponte MD [facility] (Electronically Signed) Final Date: 16 February 2024 08:28 S
== END 2024-02-14 09:00 | disposition home or self-care (01) ==
LOC: RAD 08:59
PROVIDERS: Visit Provider Internal Medicine Cardiovascular Disease
DX: R00.0 Tachycardia, unspecified (principal)
CPT/HCPCS: 93306